=== PATIENT | female | born 1960 | race Caucasian/White ===

== ENCOUNTER → 2019-08-19 09:51 | Outpatient (CLI) | payer OTHER, SELFPAY ==
[2019-08-19 10:47] LABS: Add Manual Diff / Slide Review NO; Basophils Absolute Auto 100 /uL (0-100); Eosinophils Absolute Auto 300 /uL (0-450); Hemoglobin 14.5 g/dL (12.0-16.0); Lymphocytes Absolute Auto 1500 /uL (1100-4500); Lymphocytes Percent Auto 17.7 % (25-40); Mean Corpuscular HGB Conc 34.4 % (30-36); Mean Corpuscular Hemoglobin 32.9 PG (26-34); Mean Corpuscular Volume 95.7 fL (80-100); Monocytes Absolute Auto 800 /uL (0-900); Neutrophils Absolute Auto 5900 /uL (1500-7000); Neutrophils Percent Auto 68.3 % (50-75); Platelet Count 260 X10^3/uL (150-400); Red Blood Cell Count 4.39 X10^6/uL (4.0-5.2); Red Cell Distribution Width 12.7 % (11.6-14.8); White Blood Cell Count 8.6 X10^3/uL (4.5-11.0)
[2019-08-19 11:18] LABS: Alanine Aminotransferase 25 IU/L (<35); Albumin 4.6 g/dL (3.5-5.0); Albumin Globulin Ratio 1.5 (1.0-2.8); Alkaline Phosphatase 62 U/L (38-126); Aspartate Aminotransferase 29 IU/L (14-36); BUN Creatinine Ratio 16.7 (6-22); Bilirubin Total 0.7 mg/dL (0.2-1.3); Blood Urea Nitrogen 10 mg/dL (7-17); Calcium 9.2 mg/dL (8.4-10.2); Carbon Dioxide 26 mmol/L (22-32); Chloride 97 mmol/L (98-107); Cholesterol 230 mg/dL (140-199); Estimated Glomerular Filt Rate > 60.0 mL/min (>60); Glucose 101 mg/dL (70-100); HDL Cholesterol 105 mg/dL (40-60); HEMOLYSIS < 15 (0-50); LDL Cholesterol Calculated 95 mg/dL (<100); Potassium 4.1 mmol/L (3.4-5.1); Sodium 134 mmol/L (137-145); Total Protein 7.6 g/dL (6.3-8.2); Triglycerides 148 mg/dL (35-150)
[2019-08-19 11:47] LABS: Thyroid Stimulating Hormone 2.51 uIU/mL (0.47-4.68)
== END ==
PROVIDERS: PCP Family Medicine; Visit Provider Family Medicine
DX: E78.2 Mixed hyperlipidemia (principal)
CPT/HCPCS: 36415; 80053; 80061; 84443; 85025

== ENCOUNTER → 2020-04-05 14:06 | Outpatient (CLI) | payer OTHER, SELFPAY | PROVIDERS: PCP Family Medicine; Referring Provider Family Medicine; Visit Provider Family Medicine | DX: M85.851 Other specified disorders of bone density and structure, right thigh (principal); Z78.0 Asymptomatic menopausal state; Z82.62 Family history of osteoporosis | CPT/HCPCS: 77080 ==

== ENCOUNTER → 2020-04-26 09:19 | Outpatient (CLI) | payer OTHER, SELFPAY ==
--- NOTE | 2020-04-26 09:36 | DI.MG.S_ITS ---
Patient Name: NOMAN HARVEY date: 1960 Sex: F Attending Physician: Blake Indications: Date: 04/26/2020 09:34 At the request of: RU REDD Procedure: MM screening mammo BI BILATERAL DIGITAL SCREENING MAMMOGRAM 3D/2D WITH CAD: 04/26/2020 CLINICAL: Routine screening. Comparison is made to exams dated: 10/02/2016 mammogram, 03/29/2014, and 03/29/2014 mammogram - [facility]. The tissue of both breasts is heterogeneously dense. This may lower the sensitivity of mammography. Current study was also evaluated with a Computer Aided Detection (CAD) system. There are benign vascular calcifications in both breasts. No significant masses, calcifications, or other findings are seen in either breast. There has been no significant interval change. IMPRESSION: BENIGN There is no mammographic evidence of malignancy. A 1 year screening mammogram is recommended. This exam was interpreted at Station ID: [id number]. NOTE: For mammograms, a report in lay terms will be sent to the patient. Approximately 15% of breast malignancies will not be visualized mammographically. In the management of a palpable breast mass, a negative mammogram must not discourage biopsy of a clinically suspicious lesion. Electronically Signed By: Trini logan/yousif:04/26/2020 11:39:14 letter sent: Normal Exam ACR BI-RADS Category 2: Benign Finding(s) 3342F
== END ==
PROVIDERS: PCP Family Medicine; Referring Provider Family Medicine; Visit Provider Family Medicine
DX: Z12.31 Encounter for screening mammogram for malignant neoplasm of breast (principal)
CPT/HCPCS: 77063; 77067

== ENCOUNTER → 2020-07-26 08:04 | Outpatient (CLI) | payer OTHER, SELFPAY ==
[2020-07-26 08:38] LABS: Add Manual Diff / Slide Review NO; Basophils Absolute Auto 100 /uL (0-100); Basophils Percent Auto 0.6 % (0-2); Eosinophils Absolute Auto 100 /uL (0-450); Eosinophils Percent Auto 0.7 % (2-4); Hemoglobin 14.3 g/dL (12.0-16.0); Lymphocytes Absolute Auto 1400 /uL (1100-4500); Lymphocytes Percent Auto 15.1 % (25-40); Mean Corpuscular HGB Conc 33.1 % (30-36); Mean Corpuscular Hemoglobin 32.3 PG (26-34); Mean Corpuscular Volume 97.3 fL (80-100); Monocytes Absolute Auto 400 /uL (0-900); Monocytes Percent Auto 4.8 % (3-14); Neutrophils Absolute Auto 7400 /uL (1500-7000); Neutrophils Percent Auto 78.8 % (50-75); Platelet Count 305 X10^3/uL (150-400); Red Blood Cell Count 4.42 X10^6/uL (4.0-5.2); Red Cell Distribution Width 12.9 % (11.6-14.8); White Blood Cell Count 9.4 X10^3/uL (4.5-11.0)
[2020-07-26 09:04] LABS: Alanine Aminotransferase 48 IU/L (<35); Albumin 4.2 g/dL (3.5-5.0); Albumin Globulin Ratio 1.4 (1.0-2.8); Alkaline Phosphatase 45 U/L (38-126); Aspartate Aminotransferase 34 IU/L (14-36); BUN Creatinine Ratio 14.3 (6-22); Bilirubin Total 0.5 mg/dL (0.2-1.3); Blood Urea Nitrogen 9 mg/dL (7-17); Calcium 9.5 mg/dL (8.4-10.2); Carbon Dioxide 28 mmol/L (22-32); Chloride 103 mmol/L (98-107); Cholesterol 251 mg/dL (140-199); Estimated Glomerular Filt Rate > 60.0 mL/min (>60); Glucose 107 mg/dL (70-100); HDL Cholesterol 82 mg/dL (40-60); HEMOLYSIS < 15 (0-50); LDL Cholesterol Calculated 142 mg/dL (<100); Potassium 3.9 mmol/L (3.4-5.1); Sodium 135 mmol/L (137-145); Total Protein 7.2 g/dL (6.3-8.2); Triglycerides 134 mg/dL (35-150)
== END ==
PROVIDERS: PCP Registered Nurse; Referring Provider Registered Nurse; Visit Provider Registered Nurse
DX: E78.2 Mixed hyperlipidemia (principal); Z79.890 Hormone replacement therapy
CPT/HCPCS: 36415; 80053; 80061; 85025

== ENCOUNTER → 2021-02-17 10:43 | Outpatient (CLI) | payer OTHER, SELFPAY ==
--- NOTE | 2021-02-17 10:45 | DI.RAD.S_ITS ---
PROCEDURE: XR LUMBAR SPINE MIN 4V INDICATIONS: Lumbar radiculopathy TECHNIQUE: 5 views of the lumbar spine were acquired, including bilateral oblique views. COMPARISON: [facility], , L-SPINE MINIMUM 4 VIEWS, 02/18/2017, 12:34. FINDINGS: Bones: 5 nonrib-bearing vertebrae are present. There is grade 1 anterolisthesis L4 on L5 measuring 4 mm, grade 1 retrolisthesis of L5 on S1 measuring 3 mm. These are slightly increased compared to prior exam. Moderate foraminal narrowing is noted at L5-S1, progressive. Moderate disc space narrowing at this level as well as L4-5 is also noted.. No vertebral body compression fractures. No suspicious bony lesions. Soft tissues: Overlying bowel gas pattern is normal. No suspicious soft tissue calcifications. Oblique images: No pars defects. IMPRESSION: Degenerative changes with most prominent foraminal narrowing at L5-S1 as above. Dictated by: Viola Vaughn M.D. on 02/17/2021 at 19:00 Approved by: Viola Vaughn M.D. on 02/17/2021 at 19:01
== END ==
PROVIDERS: PCP Registered Nurse; Referring Provider Physical Medicine & Rehabilitation; Visit Provider Physical Medicine & Rehabilitation
DX: M47.27 Other spondylosis with radiculopathy, lumbosacral region (principal); M48.07 Spinal stenosis, lumbosacral region
CPT/HCPCS: 72110

== ENCOUNTER → 2021-03-24 14:50 | Outpatient (CLI) | payer OTHER, SELFPAY ==
--- NOTE | 2021-03-24 14:53 | DI.MRI.S_ITS ---
PROCEDURE: MR LUMBAR SPINE WO CON INDICATIONS: L4/5 HNP TECHNIQUE: Noncontrast sagittal T1 spin echo and T2 fast echo, sagittal STIR, axial T1 and T2 fast spin echo through the lumbar spine. In cases with scoliosis, additional coronal T2 fast spin echo may be performed. COMPARISON: None. FINDINGS: Image quality: Excellent. Alignment and Curvature: There is grade 1 anterolisthesis at the L4-L5 level. No definite associated pars defects can be seen. Bone Marrow: Marrow is of normal overall signal. No acute vertebral body compression fractures. Spinal Cord: Conus medullaris terminates at the L1 level. Visualized cord demonstrates normal signal and size. Paraspinous Soft Tissues: No paravertebral masses. T12-L1: Normal appearance. L1-L2: Normal appearance. L2-L3: No significant abnormality is seen. L3-L4: Level within normal limits. L4-L5: The disc height is well-preserved. Loss of disc signal is seen at this level. Mild to moderate disc bulge is seen. There is a central disc extrusion seen, with superior migration of the disc material. Prominent facet hypertrophy is seen. On the left, there is a synovial cyst seen that is projecting medially, which is best demonstrated on series 5, image 23 and on series 2, image 10 and measures 10 mm. There is at least moderate bilateral neural foraminal narrowing seen. There is a degree of compression seen upon the exiting nerve roots. Moderate to severe central canal narrowing is seen at this level. L5-S1: The disc height and disk signal are well-preserved. Mild generalized disc bulge is seen. Mild facet joint hypertrophy is seen. There is mild left-sided and no right-sided neural foraminal narrowing seen. No central canal narrowing is seen. IMPRESSION: Focal L4-L5 degenerative change is seen, with a central disc extrusion, as well as a left-sided synovial cyst. There is associated moderate to severe central canal narrowing. Dictated by: Edi Leigh M.D. on 03/26/2021 at 10:26 Approved by: Edi Leigh M.D. on 03/26/2021 at 10:30
== END ==
PROVIDERS: PCP Registered Nurse; Referring Provider Physical Medicine & Rehabilitation; Visit Provider Physical Medicine & Rehabilitation
DX: M47.26 Other spondylosis with radiculopathy, lumbar region (principal); M51.16 Intervertebral disc disorders with radiculopathy, lumbar region; M43.16 Spondylolisthesis, lumbar region; M71.38 Other bursal cyst, other site; M48.061 Spinal stenosis, lumbar region without neurogenic claudication
CPT/HCPCS: 72148

== ENCOUNTER → 2021-04-09 07:44 | Outpatient (CLI) | payer OTHER, SELFPAY ==
[2021-04-09 12:19] LABS: COVID19 -Nasal RAPID Negative (Negative)
== END ==
PROVIDERS: PCP Registered Nurse; Visit Provider Physical Medicine & Rehabilitation
DX: Z20.822 Contact with and (suspected) exposure to COVID-19 (principal)
CPT/HCPCS: 87635; C9803

== ENCOUNTER 2021-04-10 13:54 | Outpatient (CLI) | payer OTHER, SELFPAY ==
[2021-04-10] VITALS (7 sets, daily range): BP systolic 132–156; BP diastolic 66–79; PULSE 67–72; RESP 16–24; TEMP 36.8; O2SAT 97–100
--- NOTE | 2021-04-10 13:56 | DI.RAD.S_ITS ---
PROCEDURE: PAIN L INTERLAMINAR/CAUDAL INJ INDICATIONS: SPONDYLOSIS COMPARISON: None. FINDINGS: Fluoroscopic spot filming was performed to verify placement of spinal needles at the L4-5 level(s), as labeled on the films. Appropriate location(s) of the needle tip(s) was confirmed by injection of iodinated contrast. IMPRESSION: Posterior localization for interlaminar notch epidural access for steroid injection into the dorsal epidural space of the low lumbosacral spine. Dictated by: Duglas Richardson M.D. on 04/10/2021 at 15:40 Approved by: Duglas Richardson M.D. on 04/10/2021 at 15:40
[2021-04-10] MEDS: fentaNYL 100 MCG/2 ML INJ 50 MCG IV (15:00)
[2021-04-10] MEDS: MIDAZOLAM 5 MG/5 ML VIAL IV (15:00)
[2021-04-10] MEDS: BUPIVACAINE 0.25% (PF) VIAL 2 ML INJ (15:05)
[2021-04-10] MEDS: IOPAMIDOL 15 ML VIAL 3 ML INJ (15:05)
[2021-04-10] MEDS: DEXAMETHASONE 10 MG/ML VIAL 20 MG INJ (15:05)
[2021-04-10] MEDS: BETAMETHASONE 30 MG/5 ML MDV 6 MG INJ (15:06)
--- NOTE | 2021-04-10 15:15 | P.PCN_ITS ---
Date/Time/Diagnoses Date of procedure: 04/10/21 Time of procedure: 15:15 Pre-procedure diagnosis: 1. HNP WITH RADICULAR FEATURES, 2. MULTILEVEL CENTRAL STENOSIS, Post-procedure diagnosis: same Procedure Notes Procedure: 1. FLUOROSCOPICALLY GUIDED CONTRAST CONTROLLED INTERLAMINAR EPIDURAL STEROID INJECTION -L4/5 Indications: Jihan is referred by ELVER Westbrook for treatment of Bilateral Foraminal Stenosis R>L LE symptoms. Physician: Carlos Klein Total Fluoroscopy time (seconds): 7 Total sedation minutes: 11 Complications: none Procedure in detail & Post-procedure care: FINDINGS Multilevel Central Spinal Stenosis with Nerve Root Compression DESCRIPTION OF PROCEDURE Fluoroscopically guided, contrast-controlled L4/5 translaminar epidural steroid injection. Following review of allergy and review of potential side effects and complications, including, but not necessarily limited to, infection, allergic reaction, local tissue breakdown, temporary as well as permanent nerve injury, paralysis, stroke and possible , the patient indicated that the patient understood and agreed to proceed. An informed consent document was signed by the patient, witnessed by a nurse, and placed in the patient's chart. Additionally, other treatment options including modalities, medications, and physical therapy were reviewed with the patient. After review of previous anaesthesic history and IV conscious sedation the patient was deemed safe to proceed with today?s procedure with IV conscious sedation as ASA class II designation. Safety time-out was performed to confirm patient ID, procedure to be performed and site of procedure. IV sedation was accomplished with a combination of 2mg of Versed and 50mcg of Fentanyl was administered by the RN after DO order, titrated to patient comfort during the course of the procedure while the patient remained responsive to all verbal commands In the prone position, following sterile prep and drape of the lumbar region, the L4/5 translaminar space was identified fluoroscopically. The skin was anesthetized via a 25-gauge, 1.5inch needle with 1% lidocaine solution. At this point, a 22-gauge short bevel spinal needle was atraumatically introduced and advanced under fluoroscopic guidance into the region of the L4/5 translaminar space. Depth was confirmed on lateral view. Radiological data, including multiple fluoroscopic views of the lumbar spine, reveal a spinal needle at the L4/5 translaminar space. Lateral views then show placement of the needle in the epidural space. Subsequent views show contrast material flowing superiorly and inferiorly in the epidural space. No vascular or intrathecal uptake is observed. At this point, using loss of resistance technique with saline and air, the epidural space was entered. This was confirmed following negative aspiration with injection of approximately 1.5cc of Isovue 200, showing excellent epidural flow without vascular or intrathecal uptake. At this point, 1cc of 1% lidocaine solution combined with 3cc or 20mg of dexamethasone and 6mg betamethasone was injected without incident. The patient tolerated the procedure well without signs or symptoms of compl ications prior to transfer to the recovery area continued monitoring without incident. The patient was then transferred to the recovery area where they were observed for an appropriate period of time after the injection. The patient reported a VAS score of 6 prior to the procedure and a post- procedure VAS of 0. POST OP INSTRUCTIONS The patient was provided a Pain Log to continue to record their response to the target-specific procedure prior to follow-up visit with their referring physician. Additionally, specific post-injection care instructions and a contact number to our office were provided if concerns arise regarding possible complications associated with the procedure are suspected.
--- NOTE | 2021-04-10 15:44 | PC.NURSE ---
Pt reports numbness in her BLE down to her toes. Upon standing it was evident that she was not able to be safely discharged. Pt being held with an re-evaluation in approx 15 mins
--- NOTE | 2021-04-10 16:21 | PC.NURSE ---
Pt doing ankle waves and moving legs to help with the numbness. Stood beside chair and legs are still very weak. Continue to hold with re-evaluation in 15 mins
--- NOTE | 2021-04-10 16:55 | PC.NURSE ---
Pt numbness has lessened. She was able to use a walker and march in place. With a [address] to [place], pt was discharged to home
== END 2021-04-10 16:56 ==
LOC: RAD 13:55
PROVIDERS: PCP Registered Nurse; Referring Provider Physical Medicine & Rehabilitation; Visit Provider Physical Medicine & Rehabilitation
DX: M51.16 Intervertebral disc disorders with radiculopathy, lumbar region (principal); M48.061 Spinal stenosis, lumbar region without neurogenic claudication
CPT/HCPCS: 62323; 99152; J0702; J1040; J1100; J2250; J3010

== ENCOUNTER → 2021-05-23 12:59 | Outpatient (CLI) | payer OTHER, SELFPAY ==
[2021-05-23 14:57] LABS: COVID19 -Nasal RAPID Negative (Negative)
== END ==
PROVIDERS: PCP Registered Nurse; Visit Provider Specialist
DX: Z20.822 Contact with and (suspected) exposure to COVID-19 (principal); Z01.812 Encounter for preprocedural laboratory examination
CPT/HCPCS: 87635; C9803

== ENCOUNTER 2021-05-25 06:44 | Day surgery (SDC) | payer OTHER, SELFPAY ==
[2021-05-25] VITALS (7 sets, daily range): BP systolic 125–140; BP diastolic 71–88; PULSE 77–91; RESP 12–16; TEMP 36.6–37.1; O2SAT 94–96; BMI 30.2
--- NOTE | 2021-05-25 | PATH_ITS ---
[facility] Accession Number: [id number] . 01 Material submitted: . cecum - CECUM POLYP . 02 Diagnosis: Cecal Polyp, Biopsy: Tubular adenoma. MRV 05/28/2021 1315 Local . 02 Electronically signed: . Marc Arthur MD, PhD, Pathologist NPI- [id number] . 01 Gross description: . CECUM POLYP: Received in formalin are 2 fragment(s) of rodriguez, soft tissue measuring 0.4 x 0.3 x 0.1 cm to 0.3 x 0.2 x 0.3 cm submitted entirely in 1 cassette(s) /QBJ 05/26/2021 0539 Local . 02 Pathologist provided ICD-10: D12.0 . 02 CPT . 299430 Performed at: 01 [facility] [address] [id number] MD Michael Nair MD Phone: [phone] Performed at: 02 [facility] [address] [place], [place] [id number] MD Julita Warner MD Phone: [phone]
--- NOTE | 2021-05-25 07:38 | P.HP_ITS ---
History of Present Illness History of Present Illness Date Patient Seen: 05/25/21 Time Patient Seen: 07:38 Chief complaint: [facility] [place] Narrative: Patient is woman here for screening colonoscopy. She has a personal history of polyps and it is been at least 7 years since her last colonoscopy, probably longer. Patient History Medical History Facet arthropathy, lumbar Lumbar radiculopathy Surgical History Status post surgery (12/02/11) Family & Social History Family History Mother Cancer Tobacco & Substance use: Smoking Status Never smoker Meds Home Medications and Allergies Home Medications Medication Instructions Recorded Confirmed Type albuterol sulfate 90 mcg/actuation 2 puff INHALATION Q6H PRN #8.5 gram 07/13/20 02/28/21 Rx aerosol inhaler (ProAir HFA) beclomethasone dipropionate 80 1 inh INHALATION BID #10.6 gram 07/13/20 02/28/21 Rx mcg/actuation HFA breath activated aerosol (Qvar RediHaler) progesterone micronized 100 mg 100 mg PO HS #90 cap 08/01/20 02/28/21 Rx capsule (Prometrium) estradiol 0.5 mg tablet 0.5 mg PO DAILY #90 tab 11/10/20 02/28/21 Rx citalopram 20 mg tablet (Celexa) 20 mg PO QDAY #90 tab 02/01/21 02/28/21 Rx celecoxib 200 mg capsule (Celebrex) 200 mg PO DAILY #30 cap 02/28/21 02/28/21 Rx Allergies Allergy/AdvReac Type Severity Reaction Status Date / Time Sulfa (Sulfonamide Allergy Mild Verified 05/25/21 07:13 Antibiotics) Review of Systems Review of Systems Narrative: Patient is essentially healthy except that she has had back surgery and a Exam Narrative Exam Narrative: Pleasant cooperative patient no apparent distress. Lungs are clear to auscultation. No rales or rhonchi. Heart regular rate and rhythm no murmur gallop. Abdomen is soft nontender without mass. No obvious hernias. Patient is alert and oriented x3. Assessment & Plan Assessment and plan (1) Screening for malignant neoplasm of colon: Status: Acute Assessment & Plan narrative: Patient here for a screening colonoscopy. I have discussed the procedure and the rationale with the patient including risks of bleeding, perforation which would necessitate a major operation, failure to find remove all lesions and the potential to tattoo. They appeared to understand and wished to proceed. Time Spent With Patient Critical Care time: I spent a total of [] minutes of critical care time on this patient's care today; this time is exclusive of procedural time.
--- NOTE | 2021-05-25 07:40 | PM.PREOP ---
Pre-operative Note COVID-19 COVID-19 status: Negative Result date/Date tested (Pos, Neg/Pending): 05/25/21 Interval Note History & Physical reviewed/Exam performed by Physician: Yes Changes to H&P: No ASA Class (for procedural sedation): II
[2021-05-25] MEDS: LACTATED RINGERS 1,000 ML 100 ML IV (07:42)
--- NOTE | 2021-05-25 08:17 | PM.OP.EC ---
Operative Date/Time/Diagnoses Date of procedure: 05/25/21 Time of procedure: 08:17 Pre-op diagnosis: Screening for colon cancer. Personal history of polyps. Last exam at least 7 years ago. Post-op diagnosis: same (One small polyp in the cecum. Diverticulosis principally in the sigmoid colon but scattered elsewhere around the colon as well) Procedure & Clinicians Study performed: Colonoscopy with cold biopsy Same procedure as scheduled: Yes Indications: Screening for colon cancer in a high risk group Surgeon: Alfred Hurtado Procedure Notes SCOAP/Timeout: Performed Procedure in detail: The patient was placed in the left lateral decubitus position and underwent IV sedation directed by the surgeon consisting of fentanyl and Versed. Digital exam was unremarkable. The scope was inserted and advanced through the rectum into the sigmoid, descending, transverse, and ascending colon. Patient was noted to have extensive sigmoid diverticulosis. There also diverticuli scattered occasionally elsewhere in the colon. The patient was repositioned and pressure applied in order to reach the cecum. The cecum was reached identified by the ileocecal valve and the appendiceal opening. A small polyp was noted in the cecum and this was biopsied and appeared to be completely removed. Ileocecal valve was successfully cannulated. The terminal ileum was normal in appearance. The scope was gradually brought out. No other Polyps were found. The scope ultimately was retroflexed in the rectum. The appearance was normal. The scope was removed and the patient tolerated the procedure well. The prep was excellent. Scope withdrawal time: 6 minutes Sedation minutes: 20 Findings: diverticulosis and polyp (1 polyp in the cecum) Specimen(s): other (Polyp) Complications: none Post-procedure Recommendations: Colonscopy in 5 years Follow up: as needed Disposition: PACU
[2021-05-25] MEDS: MIDAZOLAM 5 MG/5 ML VIAL IV (08:18)
[2021-05-25] MEDS: fentaNYL 250 MCG/5 ML INJ IV (08:19)
== END 2021-05-25 08:55 | disposition home or self-care (01) ==
PROVIDERS: PCP Registered Nurse; Referring Provider Specialist; Visit Provider Specialist
PROC: 0DJD8ZZ Inspection of Lower Intestinal Tract, Via Natural or Artificial Opening Endoscopic (ICD-10-PCS; CPT 45378; principal; 2021-05-25 07:45)
DX: Z12.11 Encounter for screening for malignant neoplasm of colon (principal); Z86.010 Personal history of colon polyps; K57.30 Diverticulosis of large intestine without perforation or abscess without bleeding; D12.0 Benign neoplasm of cecum
CPT/HCPCS: 45378; 45380; 99152; J2250; J3010

== ENCOUNTER → 2021-06-06 16:12 | Outpatient (CLI) | payer OTHER, SELFPAY ==
--- NOTE | 2021-06-06 | DI.MG.S_ITS ---
BILATERAL DIGITAL SCREENING MAMMOGRAM 3D/2D WITH CAD: 06/06/2021 CLINICAL: Routine screening. Comparison is made to exams dated: 04/26/2020 mammogram and 10/02/2016 mammogram - [facility]. The tissue of both breasts is heterogeneously dense. This may lower the sensitivity of mammography. Current study was also evaluated with a Computer Aided Detection (CAD) system. There are benign vascular calcifications in both breasts. No significant masses, calcifications, or other findings are seen in either breast. There has been no significant interval change. IMPRESSION: BENIGN There is no mammographic evidence of malignancy. A 1 year screening mammogram is recommended. This exam was interpreted at Station ID: [id number]. NOTE: For mammograms, a report in lay terms will be sent to the patient. Approximately 15% of breast malignancies will not be visualized mammographically. In the management of a palpable breast mass, a negative mammogram must not discourage biopsy of a clinically suspicious lesion. Electronically Signed By: Jose Raul quick/yousif:06/06/2021 16:35:56 letter sent: Normal Exam ACR BI-RADS Category 2: Benign Finding(s) 3342F
== END ==
PROVIDERS: PCP Registered Nurse; Referring Provider Registered Nurse; Visit Provider Registered Nurse
DX: Z12.31 Encounter for screening mammogram for malignant neoplasm of breast (principal)
CPT/HCPCS: 77063; 77067

== ENCOUNTER 2022-04-30 11:44 | Emergency (ER) | payer OTHER, SELFPAY ==
[2022-04-30 11:48] VITALS: BP 192/88; PULSE 88; RESP 18; TEMP 36.8; O2SAT 100; BMI 30.2
[2022-04-30 12:27] LABS: Add Manual Diff / Slide Review NO; Basophils Absolute Auto 100 /uL (0-100); Basophils Percent Auto 1.2 % (0-2); Eosinophils Absolute Auto 100 /uL (0-450); Eosinophils Percent Auto 1.2 % (2-4); Hematocrit 39.5 % (36-46); Hemoglobin 13.6 g/dL (12.0-16.0); Lymphocytes Absolute Auto 2000 /uL (1100-4500); Mean Corpuscular HGB Conc 34.3 % (30-36); Mean Corpuscular Hemoglobin 32.6 PG (26-34); Mean Corpuscular Volume 94.9 fL (80-100); Monocytes Absolute Auto 600 /uL (0-900); Monocytes Percent Auto 7.3 % (3-14); Neutrophils Absolute Auto 6000 /uL (1500-7000); Neutrophils Percent Auto 67.3 % (50-75); Platelet Count 239 X10^3/uL (150-400); Red Blood Cell Count 4.16 X10^6/uL (4.0-5.2); Red Cell Distribution Width 12.8 % (11.6-14.8); White Blood Cell Count 8.9 X10^3/uL (4.5-11.0)
[2022-04-30 12:52] LABS: Alanine Aminotransferase 34 IU/L (<35); Albumin 4.4 g/dL (3.5-5.0); Albumin Globulin Ratio 1.4 (1.0-2.8); Alkaline Phosphatase 51 U/L (38-126); Aspartate Aminotransferase 35 IU/L (14-36); BUN Creatinine Ratio 14.5 (6-22); Blood Urea Nitrogen 9 mg/dL (7-17); Calcium 9.1 mg/dL (8.4-10.2); Carbon Dioxide 23 mmol/L (22-32); Chloride 101 mmol/L (98-107); Estimated Glomerular Filt Rate > 60 mL/min (>60); Globulin 3.2 g/dL (1.7-4.1); Glucose 92 mg/dL (80-110); HEMOLYSIS 36 (0-50); Sodium 133 mmol/L (137-145); Total Protein 7.6 g/dL (6.3-8.2)
--- NOTE | 2022-04-30 13:03 | ED.GIBLEED ---
HPI - GI Bleed General Chief complaint: GI Bleed Stated complaint: GI Bleed Time Seen by Provider: 04/30/22 12:51 Source: patient Mode of arrival: Ambulatory History of Present Illness HPI Narrative: When Duke is a 62-year-old woman who comes to the day to the ER with rectal bleeding. She says she is never had this previously and over the past few days she is noticed blood on and mixed with her stool. It is bright red blood. There is no rectal pain or sense of fullness. She has no abdominal pain. No urinary symptoms. No fever chills or vomiting or nausea. She has no lightheadedness. She is never had this before. She has remote history of C-sections but no recent abdominal surgeries she is never had any rectal surgery. She takes estrogen as her only daily medication. She denies any chronic health conditions. She says she had a normal screening colonoscopy other than some precancerous lesions about 2 years ago. Related Data Previous Rx's Medication Instructions Recorded albuterol sulfate 90 mcg/actuation 2 puff inhalation Q6H PRN 12/07/21 aerosol inhaler (ProAir HFA) shortness of breath or wheezing #8.5 grams hydroxyzine HCl 25 mg tablet 25 mg PO TID PRN itching #20 tabs 12/07/21 citalopram 20 mg tablet 20 mg PO DAILY #90 tabs 02/22/22 progesterone micronized 100 mg 100 mg PO BEDTIME #90 caps 02/22/22 capsule estradiol 0.5 mg tablet 0.5 mg PO DAILY #90 tabs 04/24/22 hydrocortisone 2.5 % topical cream 1 applic MS TID 3 weeks #30 grams 04/30/22 with perineal applicator (Anusol-HC) Allergies Allergy/AdvReac Type Severity Reaction Status Date / Time Sulfa (Sulfonamide Allergy Mild Verified 04/30/22 11:51 Antibiotics) Review of Systems Review of Systems Narrative: Complete review of systems is negative other than as noted above. Patient History Medical History (Updated 04/30/22 @ 13:07 by Julian Carl MD) Depression Facet arthropathy, lumbar H/O adenomatous polyp of colon History of kidney stones (04/18/11) Mixed hyperlipidemia Osteopenia of multiple sites Postmenopausal HRT (hormone replacement therapy) Sleep disorder Surgical History (Updated 07/01/22 @ 12:19 by Carl Burch MD) S/P lumbar laminectomy Status post surgery (12/02/11) Family History Mother Cancer Social History household members: children Smoking Status: Never smoker alcohol intake: current Smoking Status: Never smoker alcohol intake frequency: 3 or more drinks per day Alcohol type: wine Substance Use Type: does not use Exam Narrative Exam Narrative: GENERAL: Alert, cooperative and in no distress. HEAD: Atraumatic. Normocephalic. EYES: Sclera are clear without icterus. Extraocular movements are full. ENT: No rhinorrhea. Oropharynx is moist. Mouth exam is benign. NECK: Supple. Full range of motion. CARDIOVASCULAR: Normal rate and rhythm without murmur gallop or rub. RESPIRATORY: Clear to auscultation. Breath sounds equal bilaterally. No wheezes, rales, or rhonchi. GASTROINTESTINAL: Abdomen soft, non-tender, nondistended. Rectal examination: Firm nontender mass at the internal anal verge at the 8 o'clock position about 1.5 cm. It is not mobile. No other rectal mass palpable. There is no stool on the exam glove. EXTREMITIES: No edema, full range of motion. No obvious trauma. NEURO: Nonfocal examination, normal speech, normal gait. SKIN: No rash or erythema of visible areas PSYCH: Normally oriented. Normal range of affect. Appropriate behavior Initial Vital Signs Initial Vital Signs: Vital Signs Temperature 98.2 F 04/30/22 11:48 Pulse Rate 88 04/30/22 11:48 Respiratory Rate 18 04/30/22 11:48 Blood Pressure 192/88 H 04/30/22 11:48 Pulse Oximetry 100 04/30/22 11:48 Oxygen Delivery Method 04/30/22 11:48 Course Orders Ordered: ED Orders 04/30/22 12:17 CBC Auto Diff [Complete Blood Count AUTO DIFF] Stat CMP [Comprehensive Metabolic Panel] Stat Vital Signs Vital signs: Vital Signs - 8 hr 04/30/22 11:48 Temperature 98.2 F Pulse Rate 88 Respiratory Rate 18 Blood Pressure 192/88 H Pulse Oximetry 100 Oxygen Delivery Method Room Air MDM - GI Bleed Lab Data Result diagrams: 04/30/22 12:17 04/30/22 12:17 Labs: Lab Results 09/06/22 Range/Units 12:17 WBC 8.9 (4.5-11.0) X10^3/uL RBC 4.16 (4.0-5.2) X10^6/uL Hgb 13.6 (12.0-16.0) g/dL Hct 39.5 (36-46) % MCV 94.9 (80-100) fL MCH 32.6 (26-34) PG MCHC 34.3 (30-36) % RDW 12.8 (11.6-14.8) % Plt Count 239 (150-400) X10^3/uL Neut % (Auto) 67.3 (50-75) % Lymph % (Auto) 23.0 L (25-40) % [place] % (Auto) 7.3 (3-14) % Eos % (Auto) 1.2 L (2-4) % Baso % (Auto) 1.2 (0-2) % Neut # (Auto) 6000 (8912-1352) /uL Lymph # (Auto) 2000 (2848-0973) /uL [place] # (Auto) 600 (0-900) /uL Eos # (Auto) 100 (0-450) /uL Baso # (Auto) 100 (0-100) /uL MDM Narrative Medical decision making narrative: Rectal bleeding that is painless. Normal recent screening colonoscopy and a palpable mass on rectal examination makes me think that most likely diagnosis here is an internal hemorrhoid. I recommend empiric therapy for same with close outpatient follow-up to ensure resolution. Warning return precautions given. Discharge Plan Departure Patient Disposition: Home Clinical Impression: Hematochezia Instructions: DI for Hemorrhoids Activity Restrictions/Additional Instructions: I think the most likely diagnosis by far is an internal hemorrhoid causing the bleeding. I recommend Anusol HC cream to be applied 3 times a day either with the applicator or with your finger. This should solve the problem over the next few days or a week or so. Of course if you have brisk bleeding to the point where you feel like you are losing too much blood or becoming lightheaded you should follow-up right away in the ER. If the symptoms are not improved significantly in the next 2 weeks, you should follow-up with your primary care doctor. Even if everything gets all better you should follow-up with your primary care doctor in about a month to make sure that the mass that I could feel was in fact a hemorrhoid and not something more concerning. Prescriptions: New hydrocortisone [Anusol-HC] 2.5 % cream with perineal applicator 1 applic MS TID 21 Days Qty: 30 0RF No Action hydroxyzine HCl 25 mg tablet 25 mg PO TID PRN (Reason: itching) Qty: 20 0RF Rx Instructions: Take 1 tab by mouth as needed for itching up to 3x/day albuterol sulfate [ProAir HFA] 90 mcg/actuation HFA aerosol inhaler 2 puff INHALATION Q6H PRN (Reason: shortness of breath or wheezing) Qty: 8.5 2RF estradiol 0.5 mg tablet 0.5 mg PO DAILY Qty: 90 1RF citalopram 20 mg tablet 20 mg PO DAILY Qty: 90 3RF progesterone micronized 100 mg capsule 100 mg PO BEDTIME Qty: 90 3RF Referrals: Carl Burch MD [Primary Care Provider] -
[2022-04-30 13:21] VITALS: BP 163/82; PULSE 64; RESP 18; O2SAT 97
== END 2022-04-30 13:23 | disposition home or self-care (01) ==
PROVIDERS: Emergency Provider Family Medicine Addiction Medicine; PCP Internal Medicine
DX: K92.1 Melena (principal)
CPT/HCPCS: 80053; 85025; 99281; 99283

== ENCOUNTER → 2022-06-26 14:59 | Outpatient (CLI) | payer OTHER, SELFPAY ==
--- NOTE | 2022-06-26 15:00 | DI.MG.S_ITS ---
BILATERAL DIGITAL SCREENING MAMMOGRAM 3D/2D WITH CAD: 06/26/2022 CLINICAL: Routine screening. Comparison is made to exams dated: 06/06/2021 mammogram, 04/26/2020 mammogram, and 10/02/2016 mammogram - [facility]. Both breasts are heterogeneously dense, which may obscure small masses (category c / 51-75% glandular tissue). Current study was also evaluated with a Computer Aided Detection (CAD) system. There is a possible focal asymmetry with an obscured margin in the right breast central to the nipple anterior depth. No other significant masses, calcifications, or other findings are seen in either breast. IMPRESSION: INCOMPLETE: NEEDS ADDITIONAL IMAGING EVALUATION The possible focal asymmetry in the right breast is indeterminate. A diagnostic mammogram and ultrasound is recommended. Based on the Tyrer Cuzick model (a risk assessment model) the patient's lifetime risk is 10.0% and her 10 year risk is 4.2%. According to the ACR, ACS, and NCCN guidelines, an annual breast MRI exam along with mammogram is recommended if the patient's lifetime risk is 20% or greater. This exam was interpreted at Station ID: [id number]. NOTE: For mammograms, a report in lay terms will be sent to the patient. Approximately 15% of breast malignancies will not be visualized mammographically. In the management of a palpable breast mass, a negative mammogram must not discourage biopsy of a clinically suspicious lesion. Electronically Signed By: Neptali Manley M.D., jr/yousif:06/27/2022 14:04:41 letter sent: Additional Imaging Needed ACR BI-RADS Category 0: Incomplete 3340F
== END ==
PROVIDERS: PCP Internal Medicine; Referring Provider Internal Medicine; Visit Provider Internal Medicine
DX: Z12.31 Encounter for screening mammogram for malignant neoplasm of breast (principal)
CPT/HCPCS: 77063; 77067

== ENCOUNTER → 2023-02-20 13:56 | Outpatient (CLI) | payer OTHER, SELFPAY ==
--- NOTE | 2023-02-20 13:58 | DI.RAD.S_ITS ---
PROCEDURE: XR HIP W PEL IF DONE LT 2V INDICATIONS: worsening pain in L hip TECHNIQUE: AP pelvis with lateral view(s) of the left hip(s). COMPARISON: None. FINDINGS: Bones: No acute fractures or dislocations. Pelvic ring appears intact. No suspicious bony lesions. Moderate symmetric degenerative changes of the bilateral femoroacetabular joints. Soft tissues: The visualized bowel gas pattern is normal. No suspicious soft tissue calcifications. IMPRESSION: Left hip without acute fracture or dislocation. Moderate degenerative changes of the bilateral femoroacetabular joints. Dictated by: Constantino Kaufman M.D. on 02/20/2023 at 16:27 Approved by: Constantino Kaufman M.D. on 02/20/2023 at 16:29
== END ==
PROVIDERS: PCP Internal Medicine; Referring Provider Internal Medicine; Visit Provider Internal Medicine
DX: M25.552 Pain in left hip (principal); M47.816 Spondylosis without myelopathy or radiculopathy, lumbar region; M85.89 Other specified disorders of bone density and structure, multiple sites
CPT/HCPCS: 73502

== ENCOUNTER 2023-02-23 08:52 | Emergency (ER) | payer OTHER, SELFPAY ==
[2023-02-23 08:56] VITALS: BP 188/88; PULSE 79; RESP 16; TEMP 36.4; O2SAT 97; BMI 30.5
--- NOTE | 2023-02-23 09:44 | ED_ITS ---
HPI - Back Pain/Injury General Chief Complaint: Back Pain/Injury Stated Complaint: BACK AND HIP PAIN Time Seen by Provider: 02/23/23 09:15 Source: patient Mode of arrival: Wheelchair Limitations: no limitations History of Present Illness HPI Narrative: Patient is a 63-year-old female with a longstanding history of low back pain. She is had 2 prior surgeries. Both of which have been laminectomies. She was told by the orthopedic surgeon that she most likely is going to need a fusion at some point but has decided that she did not want any surgery. She is had pain in her lower back since the last surgery which was a little over 1 year ago but has had increasing discomfort over the past 2 weeks. She has radiation down to the left side of her leg. There was no specific incident that caused the discomfort. She has been taking anti-inflammatories. Has not been taking any pain medication. She did contact her prior orthopedic surgeon who stated that she needed an MRI. She contacted her primary doctor told her to come to the emergency department. She states she is not necessarily here for pain medication. She is inquiring about imaging studies. She denies any bowel or bladder changes. No fevers. Related Data Previous Rx's Medication Instructions Recorded albuterol sulfate 90 mcg/actuation 2 puff inhalation Q6H PRN 12/07/21 aerosol inhaler (ProAir HFA) shortness of breath or wheezing #8.5 grams hydroxyzine HCl 25 mg tablet 25 mg PO TID PRN itching #20 tabs 12/07/21 citalopram 20 mg tablet 20 mg PO DAILY #90 tabs 02/22/22 progesterone micronized 100 mg 100 mg PO BEDTIME #90 caps 02/22/22 capsule prednisone 10 mg tablet 5 - 20 mg PO DAILY #30 tabs 08/09/22 estradiol 0.5 mg tablet 0.5 mg PO DAILY #90 tabs 10/07/22 hydrocodone 5 mg-acetaminophen 325 1 tab PO Q6H PRN pain #14 tabs 02/23/23 mg tablet prednisone 20 mg tablet 20 mg PO DAILY 7 days #7 tabs 02/23/23 Allergies Allergy/AdvReac Type Severity Reaction Status Date / Time Sulfa (Sulfonamide Allergy Mild Verified 04/30/22 11:51 Antibiotics) Review of Systems Constitutional Constitutional: Reports system reviewed and no additional complaints, except as documented Gastrointestinal Gastrointestinal: Reports system reviewed and no additional complaints, except as documented Genitourinary Genitourinary: Reports system reviewed and no additional complaints, except as documented Musculoskeletal Musculoskeletal: Reports system reviewed and no additional complaints, except as documented Integumentary/Breasts Skin/Breast: Reports system reviewed and no additional complaints, except as documented Patient History Medical History Depression Facet arthropathy, lumbar H/O adenomatous polyp of colon History of kidney stones (04/18/11) Mixed hyperlipidemia Osteopenia of multiple sites Postmenopausal HRT (hormone replacement therapy) Sleep disorder Surgical History (Updated 02/22/22 @ 12:19 by Carl Burch MD) S/P lumbar laminectomy Status post surgery (12/02/11) Family History Mother Cancer Social History household members: children Smoking Status: Never smoker alcohol intake: current Smoking Status: Never smoker alcohol intake frequency: 3 or more drinks per day Alcohol type: wine Substance Use Type: does not use Exam Initial Vital Signs Initial Vital Signs: Vital Signs Temperature 97.5 F L 02/23/23 08:56 Pulse Rate 79 02/23/23 08:56 Respiratory Rate 16 02/23/23 08:56 Blood Pressure 188/88 H 02/23/23 08:56 Pulse Oximetry 97 02/23/23 08:56 Oxygen Delivery Method Room Air 02/23/23 08:56 HENMT Head: normal to inspection and normocephalic Resp Effort & Inspection: normal respiratory effort Cardio Rate: regular rate GI Inspection: normal to inspection Back/Spine/Pelvis Back: normal to inspection Neuro General: patient alert, patient awake, patient oriented x3 and moves all extremities Course Orders Ordered: ED Orders 02/23/23 09:58 MR lumbar spine wo con Stat Discontinued Medications Hydrocodone Bitart/Acetaminophen (Hydrocodone/Acet 5/325 Tablet) 1 tab PO NOW ONE Stop: 02/23/23 10:01 Last Admin: 02/23/23 10:05 Dose: 1 tab Documented By: CTS Vital Signs Vital signs: Vital Signs - 8 hr 02/23/23 08:56 02/23/23 14:22 07/02/23 14:25 Temperature 97.5 F L Pulse Rate 79 71 Respiratory Rate 16 18 Blood Pressure 188/88 H 174/82 H Pulse Oximetry 97 97 Oxygen Delivery Method Room Air Room Air MDM - Back Pain/Injury Imaging Data lumbar MRI: Radiologist's Impression: PROCEDURE:? MR LUMBAR SPINE WO CON ? INDICATIONS:? Lower back pain with left-sided radiculopathy ? TECHNIQUE:? Noncontrast sagittal T1 spin echo and T2 fast echo, sagittal STIR, and T2 fast spin echo through the lumbar spine.? In cases with scoliosis, additional coronal T2 fast spin echo may be performed.? ? COMPARISON:? [facility], , MR LUMBAR SPINE WO CON, 03/24/2021, 14:59. ? FINDINGS:? Image quality:? Excellent.? ? Alignment and Curvature:? There is normal bony alignment.? ? Bone Marrow:? Marrow is of normal overall signal.? No acute vertebral body compression fractures.? ? Spinal Cord:? Conus medullaris terminates at the L1 level.? Visualized cord demonstrates normal signal and size.? ? Paraspinous Soft Tissues:? No paravertebral masses.? ? T12-L1:? No significant disc bulge. The foramina and central canal are patent. ? L1-L2:? No significant disc bulge. The foramina and central canal are patent. ? L2-L3:? No significant disc bulge. The foramina and central canal are patent. ? L3-L4:? No significant disc bulge. The foramina and central canal are patent. ? L4-L5:? Facet arthrosis with grade 1 anterolisthesis.? Diffuse disc bulge with a wide central disc extrusion extending 10 mm cephalad and 7 mm posteriorly which ap pears unchanged compared to prior MRI on 03/24/2021.? A left synovial cyst has resolved probably due to interval left foraminotomy.? Bilateral facet arthrosis and disc bulge cause moderate to severe bilateral foraminal stenosis. ? L5-S1:? Normal appearance.? ? IMPRESSION:? 1. Focal L4-5 central disc extrusion with moderate central canal stenosis and severe bilateral foraminal stenosis. 2. Interval left foraminotomy with with resection of previously seen left synovial cyst. [facility] Narrative Medical decision making narrative: MRI does show degenerative disc disease and foraminal stenosis in her lower lumbar region. She does have an orthopedic spine surgeon that she is seen. Will send home with symptom treatment. No indication for emergent surgery. Discharge Plan Departure Patient Disposition: Home Clinical Impression: Low back pain potentially associated with radiculopathy Instructions: DI for Low Back Pain Activity Restrictions/Additional Instructions: I do recommend that you contact the orthopedic spine surgeon to discuss further workup. I do recommend that you continue to take anti-inflammatories. Use the pain medicine as needed. Prescriptions: New prednisone 20 mg tablet 20 mg PO DAILY 7 Days Qty: 7 0RF hydrocodone-acetaminophen 5-325 mg tablet 1 tab PO Q6H PRN (Reason: pain) Qty: 14 0RF No Action hydroxyzine HCl 25 mg tablet 25 mg PO TID PRN (Reason: itching) Qty: 20 0RF Rx Instructions: Take 1 tab by mouth as needed for itching up to 3x/day albuterol sulfate [ProAir HFA] 90 mcg/actuation HFA aerosol inhaler 2 puff INHALATION Q6H PRN (Reason: shortness of breath or wheezing) Qty: 8.5 2RF prednisone 10 mg tablet 5 - 20 mg PO DAILY Qty: 30 0RF Rx Instructions: take 2 tabs for 4 days, then 1 tab for 4 days, then 1/2 tab for 1 week, then stop estradiol 0.5 mg tablet 0.5 mg PO DAILY Qty: 90 1RF citalopram 20 mg tablet 20 mg PO DAILY Qty: 90 3RF progesterone micronized 100 mg capsule 100 mg PO BEDTIME Qty: 90 3RF Referrals: Carl Burch MD [Primary Care Provider] - Stand Alone Forms: Patient Portal/API
--- NOTE | 2023-02-23 09:58 | DI.MRI.S_ITS ---
PROCEDURE: MR LUMBAR SPINE WO CON INDICATIONS: Lower back pain with left-sided radiculopathy TECHNIQUE: Noncontrast sagittal T1 spin echo and T2 fast echo, sagittal STIR, and T2 fast spin echo through the lumbar spine. In cases with scoliosis, additional coronal T2 fast spin echo may be performed. COMPARISON: [facility], MR, MR LUMBAR SPINE WO CON, 03/24/2021, 14:59. FINDINGS: Image quality: Excellent. Alignment and Curvature: There is normal bony alignment. Bone Marrow: Marrow is of normal overall signal. No acute vertebral body compression fractures. Spinal Cord: Conus medullaris terminates at the L1 level. Visualized cord demonstrates normal signal and size. Paraspinous Soft Tissues: No paravertebral masses. T12-L1: No significant disc bulge. The foramina and central canal are patent. L1-L2: No significant disc bulge. The foramina and central canal are patent. L2-L3: No significant disc bulge. The foramina and central canal are patent. L3-L4: No significant disc bulge. The foramina and central canal are patent. L4-L5: Facet arthrosis with grade 1 anterolisthesis. Diffuse disc bulge with a wide central disc extrusion extending 10 mm cephalad and 7 mm posteriorly which appears unchanged compared to prior MRI on 03/24/2021. A left synovial cyst has resolved probably due to interval left foraminotomy. Bilateral facet arthrosis and disc bulge cause moderate to severe bilateral foraminal stenosis. L5-S1: Normal appearance. IMPRESSION: 1. Focal L4-5 central disc extrusion with moderate central canal stenosis and severe bilateral foraminal stenosis. 2. Interval left foraminotomy with with resection of previously seen left synovial cyst. Dictated by: Marvin Mckeon M.D. on 02/23/2023 at 12:51 Approved by: Marvin Mckeon M.D. on 02/23/2023 at 13:04
[2023-02-23] MEDS: HYDROCODONE/ACET 5/325 TABLET 1 TAB PO (10:05)
[2023-02-23 14:22] VITALS: PULSE 71; RESP 18; O2SAT 97
[2023-02-23 14:25] VITALS: BP 174/82
== END 2023-02-23 14:29 | disposition home or self-care (01) ==
PROVIDERS: Emergency Provider Emergency Medicine; PCP Internal Medicine
DX: M54.50 Low back pain, unspecified (principal); M51.36 Other intervertebral disc degeneration, lumbar region; M48.061 Spinal stenosis, lumbar region without neurogenic claudication
CPT/HCPCS: 72148; 99283

== ENCOUNTER 2023-03-12 13:07 | Emergency (ER) | payer OTHER, SELFPAY ==
[2023-03-12 13:32] VITALS: BP 181/84; PULSE 69; RESP 20; TEMP 36.4; O2SAT 98; BMI 30.5
--- NOTE | 2023-03-12 14:05 | ED_ITS ---
HPI - Extremity Injury (Lower) <Mirza Maloney PA-C - Last Filed: 03/12/23 16:48> General Chief Complaint: Extremity Injury, Lower Stated Complaint: back/hip pain Time Seen by Provider: 03/12/23 13:42 Source: patient Mode of arrival: Wheelchair History of Present Illness HPI Narrative: This is a 63-year-old female presents emergency department due to left-sided hip pain beginning in her back with numbness and tingling down the left side of her leg. Patient received a MRI of the spine and has an appointment with a specialist. Patient is coming here for pain control. She is been taking Advil, gabapentin, oxycodone, steroids with no relief of the pain. No loss of bowel or bladder function. Related Data Previous Rx's Medication Instructions Recorded albuterol sulfate 90 mcg/actuation 2 puff inhalation Q6H PRN 12/07/21 aerosol inhaler (ProAir HFA) shortness of breath or wheezing #8.5 grams hydroxyzine HCl 25 mg tablet 25 mg PO TID PRN itching #20 tabs 12/07/21 citalopram 20 mg tablet 20 mg PO DAILY #90 tabs 02/22/22 progesterone micronized 100 mg 100 mg PO BEDTIME #90 caps 02/22/22 capsule prednisone 10 mg tablet 5 - 20 mg PO DAILY #30 tabs 08/09/22 estradiol 0.5 mg tablet 0.5 mg PO DAILY #90 tabs 10/07/22 oxycodone 5 mg tablet 5 mg PO Q6H PRN pain #30 tabs 03/06/23 dexamethasone 4 mg tablet 4 mg PO BID #14 tabs 03/12/23 Allergies Allergy/AdvReac Type Severity Reaction Status Date / Time Sulfa (Sulfonamide Allergy Mild Verified 03/12/23 13:40 Antibiotics) Review of Systems <Mirza Maloney PA-C - Last Filed: 03/12/23 16:48> Review of Systems Narrative: GENERAL: Denies chills, fatigue, malaise, fever, sweats. HEENT: Denies sinus pain, ear pain, sore throat, difficulty swallowing, dizziness. RESPIRATORY: Denies dyspnea, cough, wheezing, hemoptysis, sputum. CARDIOVASCULAR: Denies chest pain, palpitations, orthopnea, edema, GASTROINTESTINAL: Denies nausea, vomiting, abdominal pain, diarrhea, constipation, melena. : Denies dysuria, frequency, incontinence, hematuria, urinary retention. MUSCULOSKELETAL: Back pain with left-sided radiculopathy, left hip pain SKIN: Denies rash, skin lesions, or other NEUROLOGIC: Denies weakness, headache, numbness, change in speech, confusion, seizures, incoordination. PSYCHIATRIC: No concerning psychosocial issues. 12 point review of systems is negative except for those stated above Patient History <Mirza Maloney PA-C - Last Filed: 03/12/23 16:48> Medical History Depression Facet arthropathy, lumbar H/O adenomatous polyp of colon History of kidney stones (04/18/11) Mixed hyperlipidemia Osteopenia of multiple sites Postmenopausal HRT (hormone replacement therapy) Sleep disorder Surgical History (Updated 02/22/22 @ 12:19 by Carl Burch MD) S/P lumbar laminectomy Status post surgery (12/02/11) Family History Mother Cancer Social History household members: children Smoking Status: Never smoker alcohol intake: current Smoking Status: Never smoker alcohol intake frequency: 3 or more drinks per day Alcohol type: wine Substance Use Type: does not use Exam <Mirza Maloney PA-C - Last Filed: 03/12/23 16:48> Narrative Exam Narrative: GENERAL: Well-developed patient, in mild distress. HEAD: Atraumatic. Normocephalic. EYES: Pupils equal round and reactive. Extraocular motions intact. No scleral icterus. No injection or drainage. ENT: Nose without bleeding, purulent drainage. Throat without erythema, tonsillar hypertrophy or exudate. Airway patent. NECK: Trachea midline. Non tender CARDIOVASCULAR: Regular rate and rhythm without murmurs, gallops, or rubs. RESPIRATORY: Clear to auscultation. Breath sounds equal bilaterally. No wheezes, rales, or rhonchi. GASTROINTESTINAL: Abdomen soft, non-tender, nondistended. EXTREMITIES: Tenderness to palpation to the left hip BACK: Nontender without deformity or crepitance. No flank tenderness. NEURO: AOx3. SKIN: No rash or erythema of visible areas Initial Vital Signs Initial Vital Signs: Vital Signs Temperature 97.5 F L 03/12/23 13:32 Pulse Rate 69 03/12/23 13:32 Respiratory Rate 20 03/12/23 13:32 Blood Pressure 181/84 H 03/12/23 13:32 Pulse Oximetry 98 03/12/23 13:32 Oxygen Delivery Method Room Air 03/12/23 13:32 <Li Luciano DO - Last Filed: 03/12/23 19:34> Initial Vital Signs Initial Vital Signs: Vital Signs Temperature 97.5 F L 03/12/23 13:32 Pulse Rate 69 03/12/23 13:32 Respiratory Rate 20 03/12/23 13:32 Blood Pressure 181/84 H 03/12/23 13:32 Pulse Oximetry 98 03/12/23 13:32 Oxygen Delivery Method Room Air 03/12/23 13:32 Course <Mirza Maloney PA-C - Last Filed: 03/12/23 16:48> Orders Ordered: ED Orders 03/12/23 14:18 CT pelvis wo con Stat Discontinued Medications Ketorolac Tromethamine (Ketorolac 30 Mg/Ml Vial) 15 mg IM NOW ONE Stop: 03/12/23 14:31 Last Admin: 03/12/23 14:50 Dose: 15 mg Documented By: BS Vital Signs Vital signs: Vital Signs - 8 hr 03/12/23 13:32 03/12/23 16:09 Temperature 97.5 F L Pulse Rate 69 67 Respiratory Rate 20 16 Blood Pressure 181/84 H 163/70 H Pulse Oximetry 98 98 Oxygen Delivery Method Room Air Room Air <Li Luciano DO - Last Filed: 03/12/23 19:34> Orders Ordered: ED Orders 03/12/23 14:18 CT pelvis wo con Stat Discontinued Medications Ketorolac Tromethamine (Ketorolac 30 Mg/Ml Vial) 15 mg IM NOW ONE Stop: 03/12/23 14:31 Last Admin: 03/12/23 14:50 Dose: 15 mg Documented By: BS Vital Signs Vital signs: Vital Signs - 8 hr 03/12/23 13:32 03/12/23 16:09 Temperature 97.5 F L Pulse Rate 69 67 Respiratory Rate 20 16 Blood Pressure 181/84 H 163/70 H Pulse Oximetry 98 98 Oxygen Delivery Method Room Air Room Air MDM - Extremity Injury (Lower) <Mirza Maloney PA-C - Last Filed: 03/12/23 16:48> Imaging Data CT pelvis : Radiologist's Impression: [address] [address] [address] Scan Report Signed Patient: Jihan Roth MR#: [id number] : 1960 Acct:[id number] Age/Sex: 63 / F Date of Service: 03/12/23 Loc: ED Accession Number: [id number] ?? Procedure: CT pelvis wo con Ordering Provider: Mirza Maloney P.A-C PROCEDURE:? CT PEL WO CON ? INDICATIONS:? L hip pain, negative XR ? TECHNIQUE:? Noncontrast 3 mm axial sections acquired through the bony pelvis, with coronal and sagittal reformatting.? ? COMPARISON:? None. ? FINDINGS:? Image quality:? Excellent.? ? Bones:? No visualized fracture.? No definitive fracture of the left hip is identified. ? Soft tissues:? Colonic diverticular present without inflammatory change.? Bladder is distended. ? ? IMPRESSION:? ? No fracture of left hip is identified.? If concern persists for occult fracture, MRI is recommended. ? Dictated by: Viola Vaughn M.D. on 03/12/2023 at 15:36 ? ? Approved by: Viola Vaughn M.D. on 03/12/2023 at 15:40 ? MDM Narrative Medical decision making narrative: MDM * differential diagnosis includes but not limited to left hip fracture, muscular injury, spinal cord injury, lower back pain, lumbosacral strain * Prior records reviewed: Patient was seen here 17 days ago on February 23 due to back and hip pain. History of 2 prior back surgeries, laminectomies. Has not established orthopedic surgeon. Eye surgery was about a year ago. Pain radiates down left lower extremity at the time. MRI was ordered which showed focal L4-5 central disc extrusion with moderate central canal stenosis and severe bilateral foraminal stenosis as well as interval left foraminotomy with the resection of the previously seen left synovial cyst. No acute changes. Discharged home with prednisone and [place] prescriptions. * My lab interpretation: Never obtained * My imgaing interpretation: CT pelvis was unremarkable * Clinical Decision Rules/Scores evaluated: None * Independent discussions with: None ED Course: This is a 63-year-old female presents to the emergency department complaining of left hip pain as well as lower back pain with left-sided radiculopathy. She isn't having any red flag symptoms such as saddle paresthesia, urinary bowel incontinence, or any other concerning signs or symptoms. She is in his established orthopedist that she plans to falling up on. Patient was seen here couple of weeks ago and had a lumbar MRI which showed no acute findings. Patient was complaining of severe left hip pain causing her to become in tears. X-ray from 3 weeks ago was negative but patient repeatedly requesting imaging. Risks and benefits of CT scan discussed and patient was agreeable to the CT scan. CT scan unremarkable. Patient already is ready has not extensive regimen of pain medication but requesting refill of dexamethasone. This was prescribed. She states that this is the only medication medication that really seemed to help. Recommended she follow up with her primary care provider for long-term management and continue to follow up with the orthopedist for further discussion of treatment options. Shared Decision Making: Discussed plan with patient who is comfortable with the plan. Social Considerations: None Disposition: Discharged to home Discharge Plan Departure Patient Disposition: Home Clinical Impression: Acute pain of left hip Activity Restrictions/Additional Instructions: Thank you for coming to the [facility] Emergency Department today. As we discussed the CT scan was negative. There was no evidence of any kind of abnormal bony findings. I recommended follow up with your primary care provider and orthopedist for long-term management of these symptoms. Please speak with the primary care provider for long-term pain control options as well. I hope you feel better soon. Prescriptions: New dexamethasone 4 mg tablet 4 mg PO BID Qty: 14 0RF No Action hydroxyzine HCl 25 mg tablet 25 mg PO TID PRN (Reason: itching) Qty: 20 0RF Rx Instructions: Take 1 tab by mouth as needed for itching up to 3x/day albuterol sulfate [ProAir HFA] 90 mcg/actuation HFA aerosol inhaler 2 puff INHALATION Q6H PRN (Reason: shortness of breath or wheezing) Qty: 8.5 2RF prednisone 10 mg tablet 5 - 20 mg PO DAILY Qty: 30 0RF Rx Instructions: take 2 tabs for 4 days, then 1 tab for 4 days, then 1/2 tab for 1 week, then stop estradiol 0.5 mg tablet 0.5 mg PO DAILY Qty: 90 1RF oxycodone 5 mg tablet 5 mg PO Q6H PRN (Reason: pain) Qty: 30 0RF citalopram 20 mg tablet 20 mg PO DAILY Qty: 90 3RF progesterone micronized 100 mg capsule 100 mg PO BEDTIME Qty: 90 3RF Referrals: Carl Burch MD [Primary Care Provider] - Stand Alone Forms: Patient Portal/API <Li Luciano DO - Last Filed: 03/12/23 19:34> Cosign ED Attending Coslashawnature Attestation: I was immediately available in the department for consultation. Documentation has been reviewed. Imaging was reviewed, case was discussed.
--- NOTE | 2023-03-12 14:18 | DI.CT.S_ITS ---
PROCEDURE: CT PEL WO CON INDICATIONS: L hip pain, negative XR TECHNIQUE: Noncontrast 3 mm axial sections acquired through the bony pelvis, with coronal and sagittal reformatting. COMPARISON: None. FINDINGS: Image quality: Excellent. Bones: No visualized fracture. No definitive fracture of the left hip is identified. Soft tissues: Colonic diverticular present without inflammatory change. Bladder is distended. IMPRESSION: No fracture of left hip is identified. If concern persists for occult fracture, MRI is recommended. Dictated by: Viola Vaughn M.D. on 03/12/2023 at 15:36 Approved by: Viola Vaughn M.D. on 03/12/2023 at 15:40
[2023-03-12] MEDS: KETOROLAC 30 MG/ML VIAL 15 MG IM (14:50)
[2023-03-12 16:09] VITALS: BP 163/70; PULSE 67; RESP 16; O2SAT 98
--- NOTE | 2023-03-14 13:51 | ED_ITS ---
HPI - Extremity Injury (Lower) General Chief Complaint: Extremity Injury, Lower Stated Complaint: back/hip pain Time Seen by Provider: 03/12/23 13:42 Source: patient Mode of arrival: Wheelchair History of Present Illness HPI Narrative: This is a 63-year-old female presents emergency department due to Left-sided hip pain for multiple weeks with numbness and tingling down the leg. Had MRI of the spine and hip x-ray a couple of weeks ago which was negative for any acute findings. Has an appointment with orthopedics but just to come in due to the pain. History of 2 back surgeries, no loss of bowel or bladder function Related Data Previous Rx's Medication Instructions Recorded albuterol sulfate 90 mcg/actuation 2 puff inhalation Q6H PRN 12/07/21 aerosol inhaler (ProAir HFA) shortness of breath or wheezing #8.5 grams hydroxyzine HCl 25 mg tablet 25 mg PO TID PRN itching #20 tabs 12/07/21 citalopram 20 mg tablet 20 mg PO DAILY #90 tabs 02/22/22 progesterone micronized 100 mg 100 mg PO BEDTIME #90 caps 02/22/22 capsule estradiol 0.5 mg tablet 0.5 mg PO DAILY #90 tabs 10/07/22 dexamethasone 4 mg tablet 4 mg PO QID 4 days #16 tabs 03/14/23 hydromorphone 2 mg tablet 2 mg PO Q4-6H PRN pain #30 tabs 03/14/23 Allergies Allergy/AdvReac Type Severity Reaction Status Date / Time Sulfa (Sulfonamide Allergy Mild Verified 03/12/23 13:40 Antibiotics) Review of Systems Review of Systems Narrative: GENERAL: Denies chills, fatigue, malaise, fever, sweats. HEENT: Denies sinus pain, ear pain, sore throat, difficulty swallowing, dizziness. RESPIRATORY: Denies dyspnea, cough, wheezing, hemoptysis, sputum. CARDIOVASCULAR: Denies chest pain, palpitations, orthopnea, edema, GASTROINTESTINAL: Denies nausea, vomiting, abdominal pain, diarrhea, constipation, melena. : Denies dysuria, frequency, incontinence, hematuria, urinary retention. MUSCULOSKELETAL: Reports left hip pain SKIN: Denies rash, skin lesions, or other NEUROLOGIC: Denies weakness, headache, numbness, change in speech, confusion, seizures, incoordination. PSYCHIATRIC: No concerning psychosocial issues. 12 point review of systems is negative except for those stated above Patient History Medical History Depression Facet arthropathy, lumbar H/O adenomatous polyp of colon History of kidney stones (04/18/11) Mixed hyperlipidemia Osteopenia of multiple sites Postmenopausal HRT (hormone replacement therapy) Sleep disorder Surgical History (Updated 02/22/22 @ 12:19 by Carl Burch MD) S/P lumbar laminectomy Status post surgery (12/02/11) Family History Mother Cancer Social History household members: children Smoking Status: Never smoker alcohol intake: current Smoking Status: Never smoker alcohol intake frequency: 3 or more drinks per day Alcohol type: wine Substance Use Type: does not use Exam Narrative Exam Narrative: GENERAL: [] year old patient appears stated age. Well-developed patient, in mild distress. HEAD: Atraumatic. Normocephalic. EYES: Pupils equal round and reactive. Extraocular motions intact. No scleral icterus. No injection or drainage. ENT: Nose without bleeding, purulent drainage. Throat without erythema, tonsillar hypertrophy or exudate. Airway patent. NECK: Trachea midline. Non tender CARDIOVASCULAR: Regular rate and rhythm without murmurs, gallops, or rubs. RESPIRATORY: Clear to auscultation. Breath sounds equal bilaterally. No wheezes, rales, or rhonchi. GASTROINTESTINAL: Abdomen soft, non-tender, nondistended. EXTREMITIES: Left hip tenderness to palpation, neurovascularly intact distally BACK: Nontender without deformity or crepitance. No flank tenderness. NEURO: AOx3. SKIN: No rash or erythema of visible areas Initial Vital Signs Initial Vital Signs: Vital Signs Temperature 97.5 F L 03/12/23 13:32 Pulse Rate 69 03/12/23 13:32 Respiratory Rate 20 03/12/23 13:32 Blood Pressure 181/84 H 03/12/23 13:32 Pulse Oximetry 98 03/12/23 13:32 Oxygen Delivery Method Room Air 03/12/23 13:32 Course Orders Ordered: Discontinued Medications Ketorolac Tromethamine (Ketorolac 30 Mg/Ml Vial) 15 mg IM NOW ONE Stop: 03/12/23 14:31 Last Admin: 03/12/23 14:50 Dose: 15 mg Documented By: KARIE Discharge Plan Departure Patient Disposition: Home Clinical Impression: Acute pain of left hip Activity Restrictions/Additional Instructions: Thank you for coming to the [facility] Emergency Department today. As we discussed the CT scan was negative. There was no evidence of any kind of abnormal bony findings. I recommended follow up with your primary care provider and orthopedist for long-term management of these symptoms. Please speak with the primary care provider for long-term pain control options as well. I hope you feel better soon. Prescriptions: No Action hydroxyzine HCl 25 mg tablet 25 mg PO TID PRN (Reason: itching) Qty: 20 0RF Rx Instructions: Take 1 tab by mouth as needed for itching up to 3x/day albuterol sulfate [ProAir HFA] 90 mcg/actuation HFA aerosol inhaler 2 puff INHALATION Q6H PRN (Reason: shortness of breath or wheezing) Qty: 8.5 2RF estradiol 0.5 mg tablet 0.5 mg PO DAILY Qty: 90 1RF hydromorphone 2 mg tablet 2 mg PO Q4-6H PRN (Reason: pain) Qty: 30 0RF dexamethasone 4 mg tablet 4 mg PO QID 4 Days Qty: 16 0RF citalopram 20 mg tablet 20 mg PO DAILY Qty: 90 3RF progesterone micronized 100 mg capsule 100 mg PO BEDTIME Qty: 90 3RF Referrals: Carl Burch MD [Primary Care Provider] - Stand Alone Forms: Patient Portal/API
== END 2023-03-12 16:24 | disposition home or self-care (01) ==
PROVIDERS: Emergency Provider Physician Assistant Medical; PCP Internal Medicine
DX: M25.552 Pain in left hip (principal)
CPT/HCPCS: 72192; 96372; 99284; J1885

== ENCOUNTER 2023-03-14 13:47 | Emergency (ER) | payer OTHER, SELFPAY ==
[2023-03-14 13:56] VITALS: BP 199/94; PULSE 79; RESP 15; TEMP 36.4; O2SAT 95; BMI 30.7
--- NOTE | 2023-03-14 14:42 | ED.BACK ---
HPI - Back Pain/Injury <Mirza Maloney PA-C - Last Filed: 03/14/23 16:40> General Chief Complaint: Back Pain/Injury Stated Complaint: Severe lower back pain Time Seen by Provider: 03/14/23 13:50 Source: patient and EMS History of Present Illness HPI Narrative: This is a 63-year-old female presents emergency department due to acute on chronic lower back pain. Patient states that the back pain is worsened with radiation down her left lower extremity as well as the chronic numbness and tingling to the left lower extremity. She is an appointment with an orthopedist in 6 days. Patient reports severe lower back pain with left-sided radiculopathy. Denies any new onset urinary or bowel incontinence. Denies any fevers, nausea, vomiting, chest pain, or any other concerning signs or symptoms. Related Data Previous Rx's Medication Instructions Recorded albuterol sulfate 90 mcg/actuation 2 puff inhalation Q6H PRN 12/07/21 aerosol inhaler (ProAir HFA) shortness of breath or wheezing #8.5 grams hydroxyzine HCl 25 mg tablet 25 mg PO TID PRN itching #20 tabs 12/07/21 citalopram 20 mg tablet 20 mg PO DAILY #90 tabs 02/22/22 progesterone micronized 100 mg 100 mg PO BEDTIME #90 caps 02/22/22 capsule estradiol 0.5 mg tablet 0.5 mg PO DAILY #90 tabs 10/07/22 acetaminophen 325 mg tablet 650 mg PO Q6H PRN pain #60 tabs 03/14/23 (Tylenol) cyclobenzaprine 10 mg tablet 10 mg PO TID PRN muscle spasm #30 03/14/23 tabs dexamethasone 4 mg tablet 4 mg PO QID 4 days #16 tabs 03/14/23 gabapentin 300 mg capsule 300 mg PO TID 10 days #30 caps 03/14/23 hydromorphone 2 mg tablet 2 mg PO Q4-6H PRN pain #30 tabs 03/14/23 ibuprofen 600 mg tablet 600 mg PO Q8H PRN pain #30 tabs 03/14/23 oxycodone 5 mg tablet 5 mg PO Q4H PRN pain #30 tabs 03/14/23 Allergies Allergy/AdvReac Type Severity Reaction Status Date / Time Sulfa (Sulfonamide Allergy Mild Verified 03/14/23 13:56 Antibiotics) Review of Systems <Mirza Maloney PA-C - Last Filed: 03/14/23 16:40> Review of Systems Narrative: GENERAL: Denies chills, fatigue, malaise, fever, sweats. HEENT: Denies sinus pain, ear pain, sore throat, difficulty swallowing, dizziness. RESPIRATORY: Denies dyspnea, cough, wheezing, hemoptysis, sputum. CARDIOVASCULAR: Denies chest pain, palpitations, orthopnea, edema, GASTROINTESTINAL: Denies nausea, vomiting, abdominal pain, diarrhea, constipation, melena. : Denies dysuria, frequency, incontinence, hematuria, urinary retention. MUSCULOSKELETAL: Left hip pain, lower back pain SKIN: Denies rash, skin lesions, or other NEUROLOGIC: Denies weakness, headache, numbness, change in speech, confusion, seizures, incoordination. PSYCHIATRIC: No concerning psychosocial issues. 12 point review of systems is negative except for those stated above Patient History <Mirza Maloney PA-C - Last Filed: 03/14/23 16:40> Medical History Depression Facet arthropathy, lumbar H/O adenomatous polyp of colon History of kidney stones (04/18/11) Mixed hyperlipidemia Osteopenia of multiple sites Postmenopausal HRT (hormone replacement therapy) Sleep disorder Surgical History (Updated 02/22/22 @ 12:19 by Carl Burch MD) S/P lumbar laminectomy Status post surgery (12/02/11) Family History Mother Cancer Social History household members: children Smoking Status: Never smoker alcohol intake: current Smoking Status: Never smoker alcohol intake frequency: 3 or more drinks per day Alcohol type: wine Substance Use Type: does not use Exam <Mirza Maloney PA-C - Last Filed: 03/14/23 16:40> Narrative Exam Narrative: GENERAL: Well-developed patient, in mild distress. HEAD: Atraumatic. Normocephalic. EYES: Pupils equal round and reactive. Extraocular motions intact. No scleral icterus. No injection or drainage. ENT: Nose without bleeding, purulent drainage. Throat without erythema, tonsillar hypertrophy or exudate. Airway patent. NECK: Trachea midline. Non tender CARDIOVASCULAR: Regular rate and rhythm without murmurs, gallops, or rubs. RESPIRATORY: Clear to auscultation. Breath sounds equal bilaterally. No wheezes, rales, or rhonchi. GASTROINTESTINAL: Abdomen soft, non-tender, nondistended. EXTREMITIES: Left hip tenderness to palpation Back: Bilateral lumbar paraspinal tenderness to palpation BACK: Nontender without deformity or crepitance. No flank tenderness. NEURO: AOx3. SKIN: No rash or erythema of visible areas Initial Vital Signs Initial Vital Signs: Vital Signs Temperature 97.5 F L 03/14/23 13:56 Pulse Rate 79 03/14/23 13:56 Respiratory Rate 15 03/14/23 13:56 Blood Pressure 199/94 H 03/14/23 13:56 Pulse Oximetry 95 03/14/23 13:56 Oxygen Delivery Method Room Air 03/14/23 13:56 <Raquel Cabrera DO - Last Filed: 03/15/23 07:50> Initial Vital Signs Initial Vital Signs: Vital Signs Temperature 97.5 F L 03/14/23 13:56 Pulse Rate 79 03/14/23 13:56 Respiratory Rate 15 03/14/23 13:56 Blood Pressure 199/94 H 03/14/23 13:56 Pulse Oximetry 95 03/14/23 13:56 Oxygen Delivery Method Room Air 03/14/23 13:56 Course <Mirza Maloney PA-C - Last Filed: 03/14/23 16:40> Orders Ordered: Discontinued Medications Diazepam (Diazepam 5 Mg Tablet) 5 mg PO NOW ONE Stop: 03/14/23 15:16 Last Admin: 03/14/23 15:27 Dose: 5 mg Documented By: RB Hydromorphone HCl (Hydromorphone 1 Mg Inj) 1 mg IM NOW ONE Stop: 03/14/23 15:16 Last Admin: 03/14/23 15:27 Dose: 1 mg Documented By: RB Hydromorphone HCl (Hydromorphone 1 Mg Inj) 0.5 mg IM NOW ONE Stop: 03/14/23 17:00 Last Admin: 03/14/23 17:04 Dose: 0.5 mg Documented By: RB Vital Signs Vital signs: Vital Signs - 8 hr 03/14/23 13:56 03/14/23 15:01 03/14/23 15:33 Temperature 97.5 F L Pulse Rate 79 66 70 Respiratory Rate 15 20 Blood Pressure 199/94 H 178/84 H 183/80 H Pulse Oximetry 95 98 98 Oxygen Delivery Method Room Air Room Air Room Air <Raquel Cabrera DO - Last Filed: 03/15/23 07:50> Orders Ordered: Discontinued Medications Diazepam (Diazepam 5 Mg Tablet) 5 mg PO NOW ONE Stop: 03/14/23 15:16 Last Admin: 03/14/23 15:27 Dose: 5 mg Documented By: RB Hydromorphone HCl (Hydromorphone 1 Mg Inj) 1 mg IM NOW ONE Stop: 03/14/23 15:16 Last Admin: 03/14/23 15:27 Dose: 1 mg Documented By: RB Hydromorphone HCl (Hydromorphone 1 Mg Inj) 0.5 mg IM NOW ONE Stop: 03/14/23 17:00 Last Admin: 03/14/23 17:04 Dose: 0.5 mg Documented By: CHAGO Vital Signs Vital signs: Vital Signs - 8 hr 03/14/23 13:56 03/14/23 15:01 03/14/23 15:33 Temperature 97.5 F L Pulse Rate 79 66 70 Respiratory Rate 15 20 Blood Pressure 199/94 H 178/84 H 183/80 H Pulse Oximetry 95 98 98 Oxygen Delivery Method Room Air Room Air Room Air MDM - Back Pain/Injury <Mirza Maloney PA-C - Last Filed: 03/14/23 16:40> Lab Data Labs: Urine Dip Bedside Urine Glucose Negative Bedside Urine Bilirubin - Negative Bedside Urine Ketone - Negative Urine Specific [place] 1.025 Bedside Urine Occult Blood - Negative Bedside Urine pH 6.0 Bedside Urine Protein - Negative Bedside Urine Urobilinogen - Negative Bedside Urine Nitrite - Negative Bedside Urine Leukocytes - Negative Esterase MDM Narrative Medical decision making narrative: MDM * differential diagnosis includes but not limited to acute on chronic lumbar radiculopathy, fracture, cauda equina syndrome, lumbar strain * Prior records reviewed: Patient seen here couple of weeks ago where she would a lumbar MRI with no emergent surgical needs. Patient was also here 2 days ago where she would a CT of the left hip which was negative. * My lab interpretation: None obtained * My imgaing interpretation: None obtained * Clinical Decision Rules/Scores evaluated: None * Independent discussions with: None ED Course: This is a 63-year-old female presents to the emergency department due to acute on chronic left-sided lumbar radiculopathy. She is not present with any red flag symptoms such as saddle paresthesia, urinary or bowel incontinence, or acute weakness. Patient has been taking a suboptimal pain regimen of pain medications and will prescribe appropriate dosing of each until she is able to follow up with Orthopedics later this week. Shared Decision Making: Discussed plan with patient who is comfortable with the plan Social Considerations: None Disposition: Discharged to home <Raquel Cabrera DO - Last Filed: 03/15/23 07:50> Lab Data Labs: Urine Dip Bedside Urine Glucose Negative Bedside Urine Bilirubin - Negative Bedside Urine Ketone - Negative Urine Specific [place] 1.025 Bedside Urine Occult Blood - Negative Bedside Urine pH 6.0 Bedside Urine Protein - Negative Bedside Urine Urobilinogen - Negative Bedside Urine Nitrite - Negative Bedside Urine Leukocytes - Negative Esterase Discharge Plan Departure Patient Disposition: Home Clinical Impression: Lumbar back pain with radiculopathy affecting left lower extremity Instructions: DI for Back Pain With Sciatica Activity Restrictions/Additional Instructions: Thank you for coming to the [facility] Emergency Department today. Please take the medications exactly as prescribed in the hopes that this will help with your pain management. Please follow up with the orthopedist as they had the best possible people to treat your pain. Please take the dexamethasone as prescribed by your primary care doctor as well. I hope you feel better soon. Prescriptions: New gabapentin 300 mg capsule 300 mg PO TID 10 Days Qty: 30 0RF cyclobenzaprine 10 mg tablet 10 mg PO TID PRN (Reason: muscle spasm) Qty: 30 0RF acetaminophen [Tylenol] 325 mg tablet 650 mg PO Q6H PRN (Reason: pain) Qty: 60 0RF ibuprofen 600 mg tablet 600 mg PO Q8H PRN (Reason: pain) Qty: 30 0RF oxycodone 5 mg tablet 5 mg PO Q4H PRN (Reason: pain) Qty: 30 0RF No Action hydroxyzine HCl 25 mg tablet 25 mg PO TID PRN (Reason: itching) Qty: 20 0RF Rx Instructions: Take 1 tab by mouth as needed for itching up to 3x/day albuterol sulfate [ProAir HFA] 90 mcg/actuation HFA aerosol inhaler 2 puff INHALATION Q6H PRN (Reason: shortness of breath or wheezing) Qty: 8.5 2RF estradiol 0.5 mg tablet 0.5 mg PO DAILY Qty: 90 1RF hydromorphone 2 mg tablet 2 mg PO Q4-6H PRN (Reason: pain) Qty: 30 0RF dexamethasone 4 mg tablet 4 mg PO QID 4 Days Qty: 16 0RF citalopram 20 mg tablet 20 mg PO DAILY Qty: 90 3RF progesterone micronized 100 mg capsule 100 mg PO BEDTIME Qty: 90 3RF Referrals: Carl Burch MD [Primary Care Provider] - Stand Alone Forms: Patient Portal/API <Raquel Cabrera DO - Last Filed: 03/15/23 07:50> Cosign ED Attending Cosignature Attestation: I was immediately available in the department for consultation. Documentation has been reviewed.
[2023-03-14 15:01] VITALS: BP 178/84; PULSE 66; O2SAT 98
[2023-03-14] MEDS: diazePAM 5 MG TABLET PO (15:27)
[2023-03-14] MEDS: HYDROMORPHONE 1 MG INJ IM (15:27)
[2023-03-14 15:33] VITALS: BP 183/80; PULSE 70; RESP 20; O2SAT 98
[2023-03-14] MEDS: HYDROMORPHONE 1 MG INJ 0.5 MG IM (17:04)
[2023-03-14 17:10] VITALS: BP 172/73; PULSE 75; RESP 22; TEMP 36.7; O2SAT 98
== END 2023-03-14 17:10 | disposition home or self-care (01) ==
PROVIDERS: Emergency Provider Physician Assistant Medical; PCP Internal Medicine
DX: M54.16 Radiculopathy, lumbar region (principal)
CPT/HCPCS: 81003; 96372; 99283; J1170

== ENCOUNTER → 2023-05-26 10:11 | Outpatient (CLI) | payer OTHER, SELFPAY ==
--- NOTE | 2023-05-26 | DI.CT.S_ITS ---
PROCEDURE: CT LUMBAR SPINE WO CON INDICATIONS: Spinal stenosis, lumbar region TECHNIQUE: Noncontrast 3 mm thick sections acquired from the T12 level to the sacrum. Sagittal and coronal reformats were constructed. For radiation dose reduction, the following was used: automated exposure control. COMPARISON: [facility], MR, MR LUMBAR SPINE WO CON, 02/23/2023, 12:48. FINDINGS: Image quality: Excellent. Bones: There is normal bony alignment. No acute vertebral body compression fractures. No suspicious lytic or blastic bony lesions. No pars defects. T12-L1: No significant disc bulge. The foramina and central canal are patent. L1-L2: No significant disc bulge. The foramina and central canal are patent. L2-L3: No significant disc bulge. The foramina and central canal are patent. L3-L4: Diffuse disc bulge causes mild bilateral foraminal stenosis. No central canal stenosis. L4-L5: Facet arthrosis with grade 1 anterolisthesis. Diffuse disc bulge and facet hypertrophy cause moderate bilateral foraminal stenosis. The facets are hypertrophic. Moderate bilateral foraminal stenosis and moderate to severe central canal stenosis. L5-S1: No significant disc bulge. The foramina and central canal are patent. Soft tissues: No retroperitoneal masses or hematomas. Visualized aorta is normal in caliber. IMPRESSION: 1. Degenerative disc disease most prominent at L4-5 at which level there is moderate bilateral foraminal stenosis and moderate to severe central canal stenosis. 3. No acute abnormality. Dictated by: Marvin Mckeon M.D. on 05/26/2023 at 11:41 Approved by: Marvin Mckeon M.D. on 05/26/2023 at 11:48
== END ==
PROVIDERS: PCP Internal Medicine; Referring Provider Neurological Surgery; Visit Provider Neurological Surgery
DX: M51.36 Other intervertebral disc degeneration, lumbar region (principal); M48.061 Spinal stenosis, lumbar region without neurogenic claudication
CPT/HCPCS: 72131

== ENCOUNTER → 2024-04-30 09:42 | Outpatient (CLI) | payer OTHER, SELFPAY ==
--- NOTE | 2024-04-30 09:43 | DI.MG.S_ITS ---
BILATERAL DIGITAL SCREENING MAMMOGRAM 3D/2D WITH CAD: 04/30/2024 CLINICAL: Routine screening. Comparison is made to exams dated: 06/26/2022 mammogram, 06/06/2021 mammogram, 04/26/2020 mammogram - [facility], and 07/11/2022 mammogram - [facility]. Both breasts are heterogeneously dense, which may obscure small masses (category c / 51-75% glandular tissue). Current study was also evaluated with a Computer Aided Detection (CAD) system. There are benign vascular calcifications in the right breast. No significant masses, calcifications, or other findings are seen in either breast. There has been no significant interval change. IMPRESSION: BENIGN There is no mammographic evidence of malignancy. A 1 year screening mammogram is recommended. Based on the Tyrer Cuzick model (a risk assessment model) the patient's lifetime risk is 9.4% and her 10 year risk is 4.2%. According to the ACR, ACS, and NCCN guidelines, an annual breast MRI exam along with mammogram is recommended if the patient's lifetime risk is 20% or greater. This exam was interpreted at Station ID: [id number]. NOTE: For mammograms, a report in lay terms will be sent to the patient. Approximately 15% of breast malignancies will not be visualized mammographically. In the management of a palpable breast mass, a negative mammogram must not discourage biopsy of a clinically suspicious lesion. Electronically Signed By: Olman fatima/yousif:04/30/2024 14:36:53 letter sent: Normal Exam ACR BI-RADS Category 2: Benign Finding(s) 3342F
== END ==
LOC: MAMMO 09:43
PROVIDERS: PCP Internal Medicine; Referring Provider Internal Medicine; Visit Provider Internal Medicine
DX: Z12.31 Encounter for screening mammogram for malignant neoplasm of breast (principal)
CPT/HCPCS: 77063; 77067

== ENCOUNTER → 2024-07-15 15:07 | Outpatient (CLI) | payer OTHER, SELFPAY ==
[2024-07-15 15:42] LABS: Add Manual Diff / Slide Review NO; Basophils Absolute Auto 100 /uL (0-100); Basophils Percent Auto 0.8 % (0-2); Eosinophils Absolute Auto 500 /uL (0-450); Eosinophils Percent Auto 5.4 % (2-4); Hematocrit 43.1 % (36-46); Hemoglobin 14.5 g/dL (12.0-16.0); Lymphocytes Absolute Auto 2100 /uL (1100-4500); Lymphocytes Percent Auto 23.3 % (25-40); Mean Corpuscular HGB Conc 33.6 % (30-36); Mean Corpuscular Hemoglobin 33.2 PG (26-34); Mean Corpuscular Volume 98.8 fL (80-100); Monocytes Absolute Auto 600 /uL (0-900); Monocytes Percent Auto 6.4 % (3-14); Neutrophils Absolute Auto 5800 /uL (1500-7000); Neutrophils Percent Auto 64.1 % (50-75); Platelet Count 253 X10^3/uL (150-400); Red Blood Cell Count 4.36 X10^6/uL (4.0-5.2); Red Cell Distribution Width 14.2 % (11.6-14.8); White Blood Cell Count 9.1 X10^3/uL (4.5-11.0)
[2024-07-15 16:08] LABS: INR 0.9 (0.9-1.3); Prothrombin Time 10.3 SECONDS (9.4-12.5)
[2024-07-15 16:10] LABS: PTT Partial Thromboplastin Tim 29 SECONDS (25.1-36.5)
[2024-07-15 16:12] LABS: BUN Creatinine Ratio 20.3 (6-22); Blood Urea Nitrogen 14 mg/dL (7-17); Calcium 10.1 mg/dL (8.4-10.2); Carbon Dioxide 26 mmol/L (22-32); Chloride 102 mmol/L (98-107); Estimated Glomerular Filt Rate > 60 mL/min (>60); Glucose 93 mg/dL (80-110); HEMOLYSIS < 15 (0-50); Potassium 3.9 mmol/L (3.4-5.1); Sodium 136 mmol/L (137-145)
== END ==
LOC: LAB 15:07
PROVIDERS: PCP Internal Medicine; Referring Provider Internal Medicine; Visit Provider Internal Medicine
DX: R58 Hemorrhage, not elsewhere classified (principal); D68.9 Coagulation defect, unspecified
CPT/HCPCS: 36415; 80048; 81241; 85025; 85300; 85303; 85306; 85598; 85610; 85613; 85730; 86147

== ENCOUNTER → 2024-10-26 11:17 | Outpatient (CLI) | payer OTHER, SELFPAY ==
[2024-10-26 12:54] LABS: Rubella Antibody IgG 49.6 IU/mL (>15)
[2024-10-27 05:36] LABS: Rubeola Measles IgG > 300.0 AU/mL (Immune >16.4)
[2024-10-27 14:36] LABS: Mumps Virus IgG Antibody >300.0 AU/mL (Immune >10.9)
== END ==
PROVIDERS: Internal Medicine; PCP Internal Medicine; Referring Provider Internal Medicine; Visit Provider Internal Medicine
DX: Z01.84 Encounter for antibody response examination (principal)
CPT/HCPCS: 36415; 86735; 86762; 86765

== ENCOUNTER → 2025-05-05 14:55 | Outpatient (CLI) | payer OTHER, SELFPAY ==
--- NOTE | 2025-05-05 14:56 | DI.MG.S_ITS ---
MM screening mammo BI: 05/05/2025. BI-RADS: 1 CLINICAL: 65-year old female for bilateral screening mammogram. Tyrer-Cuzick lifetime risk of 6.5%. No personal or first-degree family history of breast cancer. The patient had a prior left breast biopsy. PRIOR EXAMS 04/30/2024, 07/11/2022, 06/26/2022, 06/06/2021. MAMMOGRAPHY TECHNIQUE: 2D and 3D (tomosynthesis) digital mammographic views obtained, with additional images as needed for full coverage. Current study was also evaluated with a Computer Aided Detection (CAD) system. DENSITY C. The breasts are heterogeneously dense, which may obscure small masses. MAMMOGRAPHY FINDINGS Bilateral: No suspicious mass, asymmetry, microcalcification, or other abnormality seen. IMPRESSION: * No evidence of malignancy. RECOMMENDATIONS Bilateral * Annual screening mammography. OVERALL ASSESSMENT CATEGORY BI-RADS-1: Negative. The [employer] recommends annual screening mammography beginning at age 40 for women with average risk of breast cancer. ELECTRONICALLY SIGNED: Constantino Kaufman M.D. on 05/05/2025 at 10:33:28 PM PT Interpreting Station ID: [id number]
== END ==
LOC: MAMMO 14:56
PROVIDERS: PCP Internal Medicine; Referring Provider Internal Medicine; Visit Provider Internal Medicine
DX: Z12.31 Encounter for screening mammogram for malignant neoplasm of breast (principal); R92.333 Mammographic heterogeneous density, bilateral breasts
CPT/HCPCS: 77063; 77067

== ENCOUNTER → 2025-05-24 14:10 | Outpatient (CLI) | payer OTHER, SELFPAY ==
--- NOTE | 2025-05-24 14:11 | DI.US.S_ITS ---
PROCEDURE: US PELVIC COMPLETE INDICATIONS: postmenopausal bleeding TECHNIQUE: Real-time scanning was performed of the pelvic organs, with image documentation. Additional endovaginal scanning was necessary due to incomplete visualization of the adnexal and endometrial structures by transabdominal scanning. COMPARISON: [facility], US, US PELVIC COMPLETE, 08/01/2020, 10:35. FINDINGS: Uterus: Uterus is retroverted and normal in size at 5.2 x 4.0 x 3.9 cm. The myometrium is heterogeneous. The endometrium measures 6.2 mm combined thickness. Limited exam with poor ultrasound penetration. Hemorrhagic nabothian cyst measuring up to 1.9 cm. Ovaries: The ovaries are not seen. Other: No pathologic free abdominal or pelvic fluid. IMPRESSION: Limited exam. Endometrium is mildly thickened measuring 6.2 mm. Recommend endometrial sampling or short-term follow-up ultrasound. Hemorrhagic nabothian cysts measuring up to 1.9 cm. The ovaries are not seen. We strive to produce accurate, complete, and clear reports of imaging services. To assist us in improving patient care, this report was composed using standard report templates and voice recognition software. Therefore, it may contain abnormal punctuation, insertions and/or omissions. Occasional wrong-word or sound-alike substitutions may occur. Though we review the report and make efforts to correct it, we do recommend that the report be read carefully in proper context to recognize any text inaccuracies. Dictated by: Rick Haskins M.D. on 05/24/2025 at 15:10 Approved by: Rick Haskins M.D. on 05/24/2025 at 15:12
== END ==
PROVIDERS: PCP Internal Medicine; Referring Provider Internal Medicine; Visit Provider Obstetrics & Gynecology
DX: N95.0 Postmenopausal bleeding (principal); R93.89 Abnormal findings on diagnostic imaging of other specified body structures; N88.8 Other specified noninflammatory disorders of cervix uteri
CPT/HCPCS: 76830; 76856

== ENCOUNTER 2025-08-01 06:20 | Day surgery (SDC) | payer OTHER, SELFPAY ==
[2025-07-26 10:01] VITALS: BMI 29.2
--- NOTE | 2025-08-01 | PATH_ITS ---
[facility] Accession Number: [id number] No. of containers..01 Tissue . 01 Material submitted: . endometrium - ENDOMETRIAL CURETTINGS . 01 Diagnosis: ENDOMETRIUM, CURETTINGS: Superficial biopsy of benign, inactive endometrium with focal changes suggestive of polyp, if imaging studies support. Negative for atypia, hyperplasia, or malignancy. Please see comment. MRV 08/04/2025 1707 Local . 01 Comment: The findings are suggestive of atrophy. Clinical and radiologic correlation is recommended to ensure that the endometrium has been adequately sampled. . 01 Electronically signed: . Yue Drake MD, Pathologist NPI- [id number] . 01 Gross description: . Received in formalin with two identifiers and endometrial curettings are multiple rodriguez, soft tissue fragments admixed with blood clots and received on a gauze pad aggregating to 0.7 x 0.4 x 0.1 cm. Filtered and entirely submitted in A1. ([id number]) /JUANITO 08/02/2025 1543 Local . 01 Pathologist provided ICD-10: N95.0 . 01 CPT . 811819 Specimen Comment: A courtesy copy of this report has been sent to [facility] Pathology Performed at: [address] [facility], [place], [place] [id number] MD Michael Nair MD Phone: [phone]
[2025-08-01 06:57] VITALS: BP 147/77; PULSE 73; RESP 21; TEMP 36.2; O2SAT 98
[2025-08-01] MEDS: LACTATED RINGERS 1,000 ML 42 ML IV (07:01)
--- NOTE | 2025-08-01 07:45 | PM.GYNHP.1 ---
History of Present Illness History of Present Illness Narrative: Jihan Roth is a 65 year old female presents for hysteroscopyc D&C with mirena IUD placement for postmenopausal bleeding on systemic estrogen. Patient has been on systemic estrogen for several years. she has had now 3 episodes of postmenopausal bleeding. discussed the need for thorough evaluation of the uterine cavity and discussed progesterone releasing IUD as a mode of endometrial protection while taking systemic estrogen and patient desires this. [facility] Medical History (Updated 07/26/25 @ 09:55 by Shannon San RN) H/O adenomatous polyp of colon History of kidney stones (04/18/11) Facet arthropathy, lumbar Osteopenia of multiple sites Sleep disorder Depression Postmenopausal HRT (hormone replacement therapy) Mixed hyperlipidemia Surgical History (Updated 07/26/25 @ 09:58 by Shannon San RN) Hx of lumbosacral spine surgery (06/20/23) S/P S/P ovarian cystectomy S/P lumbar laminectomy (2020) S/P lumbar laminectomy (2017) Status post surgery (12/02/11) Family History Mother Cancer Social History household members: children Smoking Status: Never smoker alcohol intake: current Meds Home Medications and Allergies Home Medications ?Medication ?Instructions ?Recorded ?Confirmed ?Type estradiol 0.5 mg tablet 0.5 mg PO DAILY #90 tabs 12/13/24 08/01/25 Rx citalopram 20 mg tablet 20 mg PO DAILY #90 tabs 06/27/25 08/01/25 Rx progesterone micronized 100 mg 100 mg PO BEDTIME #90 caps 07/27/25 08/01/25 Rx capsule Allergies Allergy/AdvReac Type Severity Reaction Status Date / Time Sulfa (Sulfonamide Allergy Mild Verified 06/27/25 14:06 Antibiotics) Review of Systems Review of Systems ROS: Yes All systems reviewed with the patient and are negative except as otherwise documented Exam Vital Signs (past 8 hours): - 08/01/25 06:57 Temperature 97.1 F L Pulse Rate 73 Respiratory Rate 21 Blood Pressure 147/77 H Pulse Oximetry 98 Oxygen Delivery Method Room Air Oxygen Delivery Method Room Air Const General: cooperative, healthy appearing, comfortable and well developed HENMT Head: normal to inspection Resp Effort & Inspection: normal respiratory effort and able to speak in complete sentences Auscultation: clear to auscultation bilaterally Cardio Rate: regular rate Rhythm: regular rhythm Heart Sounds: no murmurs GI Inspection: normal to inspection Palpation: soft Neuro Speech: speech normal Gait: normal gait Psych Appearance: grossly normal Assessment & Plan Assessment and plan (1) Postmenopausal bleeding: Problem details: Ultrasound for 424 endometrial thickness of 3.83 mm Status: Acute Plan: failed EMB in office retroverted Uterus with 6mm EMS noted on US recommend to proceed with hysteroscopy D&C with progesterone IUD placement-- reviewed risks of procedure including bleeding, pain, infection, uterine perforation, injury to surrounding organs/tissues. reviewed risk of IUD palcement including explusion, irregular bleeding, malposition requiring hysteroscopic removal in the future. all questions answerted- consents signed patient given misoprostol to tkae prior to procedure will proceed to the OR when available Time-Based Coding :: [TOTAL MINUTES] spent with patient and on the chart (including review of chart, obtaining history, exam, reviewing outside data, placing orders, documenting exam and treatment plan, and counseling patient) on [DATE].
--- NOTE | 2025-08-01 07:49 | PM.PREOP ---
Pre-operative Note COVID-19 COVID-19 status: Not tested Interval Note History & Physical reviewed/Exam performed by Physician: Yes Changes to H&P: No ASA Class (for procedural sedation): II
--- NOTE | 2025-08-01 08:17 | SUR.OPER ---
Lithotomy on padded OR bed, head on pillow, arms secured on padded arm boards at <90 degrees abduction. Legs secured in padded yellow fins stirrups.
[2025-08-01 08:55] VITALS: BP 180/80; PULSE 76; RESP 16; TEMP 36.1; O2SAT 99
--- NOTE | 2025-08-01 08:57 | PM.GYNOP.1 ---
Operative Date/Time/Diagnoses Date of procedure: 08/01/25 Time of procedure: 08:00 Pre-op diagnosis: Postmenopausal bleeding Post-op diagnosis: same Procedure & Clinicians Procedure: Procedures Operation Date: 08/01/25 07:45 Actual Procedure Side Surgeon p Hysteroscopy Dilation and curettage, mirena IUD insertion Not Applicable Sangita Walker DO Indications: Postmenopausal bleeding Surgeon: Sangita Walker Anesthesia Type: General Operative Notes Findings: there is a small area of tissue abutting into the cervical canal- appears consistent with possible cervical fibroid vs more likely nabothian cyst, atrophic endometrium with a septum noted, a patent left ostia was noted, the right ostia was not well visualized. Closure Type: not applicable Specimen(s): endometrial curettings Applied: none Estimated blood loss (mL): 5 Blood products transfused: none Procedure in detail: The patient was taken to the operating room where she was properly prepped and draped in sterile manner under general anesthesia. After bimanual examination, the cervix was exposed with a weighted vaginal speculum and the anterior lip of the cervix grasped with a tenaculum. The uterus was sounded to a depth of 7 cm. The endocervical canal was then progressively dilated with Hanks and Hegar dilators to a #7 Hegar. The myosure hysteroscope was then introduced into the uterine cavity using sterile saline solution as a distending media and with attached video camera. The endometrial cavity was distended with fluids and the cavity visualized. The above findings were noted. There were no direct intraluminal lesions seen. The patient tolerated the procedure well. Several pictures were taken of the endometrial cavity and the hysteroscope removed from the cavity. A large sharp curette was then used to obtain a scant amount of tissue, which was the sent to pathologist for analysis. The instrument was removed from the vaginal vault. The patient was sent to recovery area in satisfactory postoperative condition. Complications: none Post-operative Condition: stable Disposition: PACU Plan for aftercare: discharge home today post op visit in 2wks pelvic rest x 2 weeks
[2025-08-01 09:01] VITALS: BP 170/68; PULSE 74; RESP 20; TEMP 36.2; O2SAT 98
[2025-08-01 09:06] VITALS: BP 163/71; PULSE 68; RESP 18; TEMP 36.2; O2SAT 94
[2025-08-01 09:45] VITALS: BP 163/70; PULSE 68; RESP 18; TEMP 36.7; O2SAT 98
== END 2025-08-01 09:55 | disposition home or self-care (01) ==
PROVIDERS: PCP Internal Medicine; Referring Provider Internal Medicine; Visit Provider Obstetrics & Gynecology
PROC: 0UDB8ZZ Extraction of Endometrium, Via Natural or Artificial Opening Endoscopic (ICD-10-PCS; CPT 58558; principal; 2025-08-01 07:45)
DX: N95.0 Postmenopausal bleeding (principal); Z30.430 Encounter for insertion of intrauterine contraceptive device
CPT/HCPCS: 58558; C1713; J1100; J1885; J2405; J2704; J3010; J7120

== ENCOUNTER → 2025-08-11 10:54 | Outpatient (CLI) | payer OTHER, SELFPAY ==
[2025-08-11 12:25] LABS: Add Manual Diff / Slide Review NO; Hematocrit 41.3 % (36-46); Hemoglobin 14.1 g/dL (12.0-16.0); Lymphocytes Absolute Auto 1300 /uL (1100-4500); Mean Corpuscular HGB Conc 34.2 % (30-36); Mean Corpuscular Hemoglobin 34.7 PG (26-34); Mean Corpuscular Volume 101.3 fL (80-100); Platelet Count 258 X10^3/uL (150-400)
[2025-08-11 12:30] LABS: Alanine Aminotransferase 36 IU/L (<35); Albumin 4.6 g/dL (3.5-5.0); Albumin Globulin Ratio 1.7 (1.0-2.8); Alkaline Phosphatase 58 U/L (38-126); Blood Urea Nitrogen 11 mg/dL (7-17); Calcium 9.5 mg/dL (8.4-10.2); Carbon Dioxide 23 mmol/L (22-32); Chloride 102 mmol/L (98-107); Cholesterol 246 mg/dL (140-199); Estimated Glomerular Filt Rate > 60 mL/min (>60); Globulin 2.7 g/dL (1.7-4.1); Glucose 109 mg/dL (70-99); HEMOLYSIS < 15 (0-50); Potassium 4.3 mmol/L (3.4-5.1); Sodium 135 mmol/L (137-145); Total Protein 7.3 g/dL (6.3-8.2); Triglycerides 94 mg/dL (35-150)
[2025-08-11 12:40] LABS: HDL Cholesterol 150 mg/dL (40-60)
[2025-08-11 13:41] LABS: TSH w/ Reflex to FT4 2.76 uIU/mL (0.47-4.68)
== END ==
PROVIDERS: PCP Internal Medicine; Referring Provider Internal Medicine; Visit Provider Internal Medicine
DX: J45.20 Mild intermittent asthma, uncomplicated (principal); D64.9 Anemia, unspecified; E78.5 Hyperlipidemia, unspecified; E03.9 Hypothyroidism, unspecified; F32.4 Major depressive disorder, single episode, in partial remission
CPT/HCPCS: 36415; 80053; 80061; 84443; 85025